=== PATIENT | female | born 1935 | race Caucasian/White ===

== ENCOUNTER 2016-07-22 21:49 | Inpatient (IN) ==
[2016-07-22] MEDS ORDERED: 0.9 % Sodium Chloride 500 ML IVC ONE (22:00)
[2016-07-22 22:18] LABS: Basophils % 0.2 %; Hematocrit 31.8 % (35.3-44.9); Hemoglobin 9.4 g/dL (11.5-15.4); Immature Granulocytes % 1.4 % (0-4); Lymphocytes # 0.4 K/mcL (0.6-4.6); Lymphocytes % 2.3 %; Mean Corpuscular HGB Conc 29.6 g/dL (31.6-35.5); Mean Corpuscular Hemoglobin 20.3 pg (28.0-33.3); Mean Corpuscular Volume 68.8 fL (83.0-100.0); Mean Platelet Volume 10.2 fL (9.4-12.4); Monocytes # 0.7 K/mcL (0.0-1.3); Monocytes % 4.2 %; Neutrophils # 15.3 K/mcL (1.6-8.9); Platelet Count 362 K/mcL (140-400); Red Blood Count 4.62 M/mcL (3.82-4.97); Segmented Neutrophils % 91.9 %
[2016-07-22] MEDS ORDERED: Aspirin 81 MG TAB.CHEW PO ONE (22:21)
--- NOTE | 2016-07-22 22:30 | Emergency Department Note ---
Disposition Clinical Impression: Paroxysmal atrial fibrillation with RVR, NSTEMI (non-ST elevated myocardial infarction) Disposition: Admitted As Inpatient Condition: Fair Referrals: NO,PCP [Primary Care Provider] - Forms: ED Satisfaction Letter Time of Disposition: 01:37 SOB HPI - General Chief Complaint: ED Shortness of Breath/Dyspnea Stated Complaint: SOB/Fever Time Seen by Provider: 07/22/16 22:07 Source: EMS Limitations: no limitations Nursing Notes Reviewed: Yes Vital Signs Reviewed: Yes - History of Present Illness 81 year old female with poor PCP followup and grandchildren and bedside. She state that she is having difficulty with breathing. Patients grandchildren states that she was complainign of midsternal chest pain a few days ago without radiation or diaphoresis. She has had a productive cough for the past two weeks with a tmax of 102F. Marty has been exposed to someone with bronchitis and had not been immunizaed against the flu this year. She was a long standing smoker without HX of cancer but it otherwise immobile and moves from her bed to the cough. Marty does not use inhales, breathing treatments, or oxygen at home and has not been diangosed with COPD or asthma. Upon arrival she was 89% and placed on oxygen and is now 97%. Patient denies abdominal pain, uti symptoms , nause or vomitting. Currenlty her chest pain is resolved although she still feels dyspniec. Cough is described as green/yellow sputum. - Related Data Allergies Allergy/AdvReac Type Severity Reaction Status Date / Time No Known Allergies Allergy Verified 07/22/16 21:50 Constitutional: Denies: fever, chills, weakness, weight change Eyes: Denies: eye pain, eye discharge, vision change ENT ED: Denies: ear pain, throat pain, dental pain, hearing loss, epistaxis, congestion, dysphagia Cardiovascular: Reports: chest pain, dyspnea on exertion. Denies: palpitations , edema, syncope Respiratory: Reports: cough, dyspnea. Denies: wheezes, hemoptysis, stridor Gastrointestinal: Denies: abdominal pain, nausea, vomiting, diarrhea, constipation, hematemesis, melena, hematochezia Genitourinary: Denies: dysuria, frequency, hematuria, discharge Musculoskeletal: Denies: back pain, neck pain, arthralgia, myalgia Integumentary: Denies: rash, abrasion, lesions Neurological: Denies: headache, weakness, numbness, paresthesias, confusion, abnormal gait, vertigo Psychiatric: Denies: anxiety, depression, suicidal thoughts, homicidal thoughts , auditory hallucinations, visual hallucinations Endocrine: Denies: fatigue Hematological/Lymphatic: Denies: easy bleeding, easy bruising Allergic/Immunologic: Denies: facial swelling, urticaria Past Medical History - Past Medical History Medical history: Reports: no medical history Psychiatric history: Reports: no psych history - Social History Smoking Status: Former smoker Smokeless Tobacco Status: No Alcohol use: Reports: none Drug use: Reports: none Physical Exam - General Limitations: no limitations General appearance: alert - Head Head exam: atraumatic, normocephalic, normal inspection - Eye Eye exam: Present: normal appearance, PERRL, EOMI - Expanded Eye Exam Pupils: Left: reactive - ENT ENT exam: normal exam, normal oropharynx, mucous membranes moist - Expanded ENT Exam External ear exam: Present: normal external inspection Mouth exam: Present: normal external inspection Teeth exam: Present: normal inspection Throat exam: Present: normal inspection - Neck Neck exam: Present: normal inspection, full ROM, trachea midline - Chest Chest inspection: Present: normal inspection, symmetric chest wall rise - Respiratory Respiratory exam: Present: normal lung sounds bilaterally - Cardiovascular Cardiovascular exam: Present: normal rhythm, tachycardia, normal heart sounds - Abdominal Exam Abdominal exam: Present: soft, Non-Tender. Absent: tenderness, distention, guarding, rebound, rigidity - Extremities Exam Extremities exam: Present: normal inspection, full ROM. Absent: tenderness, pedal edema - Expanded Upper Extremity Exam Shoulder exam: Present: normal inspection, full ROM Arm exam: Present: normal inspection, full ROM Elbow exam: Present: normal inspection, full ROM Forearm/Wrist exam: Present: normal inspection, full ROM Hand exam: Present: normal inspection, full ROM Vascular exam: Normal: capillary refill, radial pulse - Expanded Lower Extremity Exam Hip/Pelvis exam: Present: normal inspection, full ROM Upper leg exam: Present: normal inspection, full ROM Knee exam: Present: normal inspection, full ROM Lower leg exam: Present: normal inspection, full ROM Ankle exam: Present: normal inspection, full ROM Foot/toe exam: Present: normal inspection, full ROM Neurovascular/Tendon exam: Absent: motor deficit, sensory deficit, tendon deficit - Back Exam Back exam: Present: normal inspection, full ROM. Absent: tenderness - Neurological Exam Neurological exam: Present: alert, oriented X3 - Expanded Neurological Exam Patient oriented to: Present: person, place, time Speech: Present: fluid speech Coma Scale Eye Opening: Spontaneous Coma Scale Motor Response: Obeys Commands Coma Scale Verbal Response: Oriented Coma Scale Total: 15 - Psychiatric Psychiatric exam: Present: normal affect, normal mood - Skin Skin exam: Present: warm, dry, intact, normal color Course Course Narrative: we will do a chest pain workup in aiddition to rule out pnuemonia/influenza. Cannot perc out patient and wells critieria score of 3. We will add a D-dimer for PE rule out. ASA and IVF given for therpy. - Reevaluation(s) Reevaluation #1: treat marty with ASA and CTA chest to r/o PE and assess for pnuemonia. Time: 23:32 Reevaluation #2: patient heart rate elevated to 200s at rest with stable blood pressures. heparin therapy started. Will need to do V/Q vs CTA in house, in the meantime we will start anticoagulation therapy. Time: 01:35 Reevaluation #3: marty convereted out of her atrial fibrillation on her own. We will hold the cardizem. HR is 113. Time: 01:35 - Consultations Consultation #1: discussed case with Dr. Priest and he accepts patient to medicine Time: 01:46 Vital Signs Temperature 99.2 F 07/22/16 21:51 Pulse Rate 117 07/22/16 21:51 Respiratory Rate 31 07/22/16 21:51 Blood Pressure 161/97 07/22/16 21:51 O2 Sat by Pulse Oximetry 96 07/22/16 21:51 Temperature 99.2 F 07/22/16 21:51 Pulse Rate 107 07/23/16 00:43 Respiratory Rate 18 07/23/16 00:43 Blood Pressure 122/59 07/23/16 00:43 O2 Sat by Pulse Oximetry 95 07/23/16 00:43 Oxygen Delivery Oxygen Delivery Nasal Cannula Shortness of Breath/Dyspnea - Lab Data Result diagrams: 07/22/16 22:00 07/22/16 22:00 Lab Results 07/22/16 07/22/16 07/22/16 Range/Units 22:00 22:00 22:00 WBC 16.6 H (4.3-11.1) K/mcL RBC 4.62 (3.82-4.97) M/mcL Hgb 9.4 L (11.5-15.4) g/dL Hct 31.8 L (35.3-44.9) % MCV 68.8 L (83.0-100.0) fL MCH 20.3 L (28.0-33.3) pg MCHC 29.6 L (31.6-35.5) g/dL RDW 18.0 H (11.5-14.5) % Plt Count 362 (140-400) K/mcL MPV 10.2 (9.4-12.4) fL Immature Gran % 1.4 (0-4) % Seg Neutrophils % 91.9 % Lymphocytes % 2.3 % Monocytes % 4.2 % Eosinophils % 0.0 % Basophils % 0.2 % Neutrophils # 15.3 H (1.6-8.9) K/mcL Lymphocytes # 0.4 L (0.6-4.6) K/mcL Monocytes # 0.7 (0.0-1.3) K/mcL Eosinophils # 0.0 (0.0-0.6) K/mcL Basophils # 0.0 (0.0-0.2) K/mcL Toxic Granulation Present A (Not Present) Microcytosis Present A (Not Present) PT (9.4-12.1) Seconds INR APTT (26.0-36.0) Seconds D-Dimer (0-500) ng/mLFEU Sodium 135 L (136-145) mEq/L Potassium 3.3 L (3.5-4.5) mEq/L Chloride 102 (98-109) mEq/L Carbon Dioxide 23 (19-29) mEq/L BUN 16 (7-20) mg/dL Creatinine 0.69 (0.57-1.11) mg/dL Est GFR ( Amer) > 60 (> 60) Est GFR (Non-Af Amer) > 60 (> 60) BUN/Creatinine Ratio 23 (6-26) Glucose 155 H (70-99) mg/dL Calculated Osmolality 284 (280-300) Lactic Acid 1.6 (0.5-2.2) mmol/L Calcium 8.9 (8.6-10.8) mg/dL Total Bilirubin 0.3 (0.2-1.2) mg/dL Direct Bilirubin 0.2 (0.0-0.5) mg/dL Indirect Bilirubin 0.1 (0.0-1.2) mg/dL AST 16 (5-34) Units/L ALT 7 (0-55) Units/L Alkaline Phosphatase 95 (38-126) Units/L Troponin I (0-0.03) ng/mL B-Natriuretic Peptide (0-100) pg/mL Serum Total Protein 7.0 (6.0-8.3) g/dL Albumin 3.1 L (3.5-5.0) g/dL Globulin 3.9 H (2.4-3.5) g/dL Albumin/Globulin Ratio 0.8 L (1.1-2.2) Urine Color (Yellow) Urine Clarity (Clear) Urine pH (5.0-8.0) pH Units Ur Specific [place] (1.010-1.025) Urine Protein (Neg-Trace) mg/dL Urine Glucose (UA) (Normal) mg/dL Urine Ketones (Negative) mg/dL Urine Blood (Negative) Urine Nitrite (Negative) Urine Bilirubin (Negative) Urine Urobilinogen (Normal) mg/dL Ur Leukocyte Esterase (Negative) Ur Culture Indicated? (NO) 07/22/16 07/22/16 07/22/16 Range/Units 22:00 22:00 22:55 WBC (4.3-11.1) K/mcL RBC (3.82-4.97) M/mcL Hgb (11.5-15.4) g/dL Hct (35.3-44.9) % MCV (83.0-100.0) fL MCH (28.0-33.3) pg MCHC (31.6-35.5) g/dL RDW (11.5-14.5) % Plt Count (140-400) K/mcL MPV (9.4-12.4) fL Immature Gran % (0-4) % Seg Neutrophils % % Lymphocytes % % Monocytes % % Eosinophils % % Basophils % % Neutrophils # (1.6-8.9) K/mcL Lymphocytes # (0.6-4.6) K/mcL Monocytes # (0.0-1.3) K/mcL Eosinophils # (0.0-0.6) K/mcL Basophils # (0.0-0.2) K/mcL Toxic Granulation (Not Present) Microcytosis (Not Present) PT (9.4-12.1) Seconds INR APTT (26.0-36.0) Seconds D-Dimer (0-500) ng/mLFEU Sodium (136-145) mEq/L Potassium (3.5-4.5) mEq/L Chloride (98-109) mEq/L Carbon Dioxide (19-29) mEq/L BUN (7-20) mg/dL Creatinine (0.57-1.11) mg/dL Est GFR ( Amer) (> 60) Est GFR (Non-Af Amer) (> 60) BUN/Creatinine Ratio (6-26) Glucose (70-99) mg/dL Calculated Osmolality (280-300) Lactic Acid (0.5-2.2) mmol/L Calcium (8.6-10.8) mg/dL Total Bilirubin (0.2-1.2) mg/dL Direct Bilirubin (0.0-0.5) mg/dL Indirect Bilirubin (0.0-1.2) mg/dL AST (5-34) Units/L ALT (0-55) Units/L Alkaline Phosphatase (38-126) Units/L Troponin I 0.05 H* (0-0.03) ng/mL B-Natriuretic Peptide 127 H (0-100) pg/mL Serum Total Protein (6.0-8.3) g/dL Albumin (3.5-5.0) g/dL Globulin (2.4-3.5) g/dL Albumin/Globulin Ratio (1.1-2.2) Urine Color Dark Yellow (Yellow) Urine Clarity Clear (Clear) Urine pH 6.0 (5.0-8.0) pH Units Ur Specific [place] 1.025 (1.010-1.025) Urine Protein Trace (Neg-Trace) mg/dL Urine Glucose (UA) Normal (Normal) mg/dL Urine Ketones 15 H (Negative) mg/dL Urine Blood Negative (Negative) Urine Nitrite Negative (Negative) Urine Bilirubin Moderate H (Negative) Urine Urobilinogen 4.0 H (Normal) mg/dL Ur Leukocyte Esterase Negative (Negative) Ur Culture Indicated? NO (NO) 07/22/16 Range/Units 23:47 WBC (4.3-11.1) K/mcL RBC (3.82-4.97) M/mcL Hgb (11.5-15.4) g/dL Hct (35.3-44.9) % MCV (83.0-100.0) fL MCH (28.0-33.3) pg MCHC (31.6-35.5) g/dL RDW (11.5-14.5) % Plt Count (140-400) K/mcL MPV (9.4-12.4) fL Immature Gran % (0-4) % Seg Neutrophils % % Lymphocytes % % Monocytes % % Eosinophils % % Basophils % % Neutrophils # (1.6-8.9) K/mcL Lymphocytes # (0.6-4.6) K/mcL Monocytes # (0.0-1.3) K/mcL Eosinophils # (0.0-0.6) K/mcL Basophils # (0.0-0.2) K/mcL Toxic Granulation (Not Present) Microcytosis (Not Present) PT 14.3 H (9.4-12.1) Seconds INR 1.3 APTT 28.4 (26.0-36.0) Seconds D-Dimer 1557 H (0-500) ng/mLFEU Sodium (136-145) mEq/L Potassium (3.5-4.5) mEq/L Chloride (98-109) mEq/L Carbon Dioxide (19-29) mEq/L BUN (7-20) mg/dL Creatinine (0.57-1.11) mg/dL Est GFR ( Amer) (> 60) Est GFR (Non-Af Amer) (> 60) BUN/Creatinine Ratio (6-26) Glucose (70-99) mg/dL Calculated Osmolality (280-300) Lactic Acid (0.5-2.2) mmol/L Calcium (8.6-10.8) mg/dL Total Bilirubin (0.2-1.2) mg/dL Direct Bilirubin (0.0-0.5) mg/dL Indirect Bilirubin (0.0-1.2) mg/dL AST (5-34) Units/L ALT (0-55) Units/L Alkaline Phosphatase (38-126) Units/L Troponin I (0-0.03) ng/mL B-Natriuretic Peptide (0-100) pg/mL Serum Total Protein (6.0-8.3) g/dL Albumin (3.5-5.0) g/dL Globulin (2.4-3.5) g/dL Albumin/Globulin Ratio (1.1-2.2) Urine Color (Yellow) Urine Clarity (Clear) Urine pH (5.0-8.0) pH Units Ur Specific [place] (1.010-1.025) Urine Protein (Neg-Trace) mg/dL Urine Glucose (UA) (Normal) mg/dL Urine Ketones (Negative) mg/dL Urine Blood (Negative) Urine Nitrite (Negative) Urine Bilirubin (Negative) Urine Urobilinogen (Normal) mg/dL Ur Leukocyte Esterase (Negative) Ur Culture Indicated? (NO) - EKG Data EKG attestation: Yes I reviewed and interpreted this EKG. EKG results narrative: sinus tachycardia with rate of 131. NO STEMI. PVCs present. LAFB. no change from old ekg 05/16/11. 8 EKG #2: sinus tachycardia with rate of 119. NO STEMI. normla intevals. PVCs. 2329 EKG #3: paroxysmal atrial fibrillation with RVR. 0128 Attestation Statement - Attestation Attestation: I personally interviewed and examined this patient and my medical decision- making was reviewed with the ED Resident Physician, Dr. Candelaria. I agree with the documented findings, disposition and treatment plan as described except to the extent set forth below. Patient is a 81-year-old female presented to the emergency department with complaints of shortness of breath lightheadedness and was hypoxic on arrival on room air 89%. She was extremely tachycardic but with a stable blood pressure and serial EKGs during the majority of her ED course showed a sinus tachycardia with occasional PACs and PVCs. Patient's lab evaluation showed a positive troponin with normal renal function. We did cover the patient with aspirin and heparin. We also discussed the case with cardiology will consult on the patient, Dr. Rodney. We made attempts to perform CT to rule out PE due to patient's baseline tachycardia and dyspnea and hypoxia and due to patient's thoracic spine injuries and chronic pain she is unable to tolerate lying flat or left lateral decubitus position to tolerate a scan and is refusing CT. Due to this we went ahead and extubated her heparin dosing to include coverage for PE DVT based on dosing. Patient then while resting comfortably bedside had a paroxysmal episode of atrial fibrillation with RVR. We did catch this on EKG and while we are in the process of preparing to dose her with Gabrielle patient converted back to normal sinus rhythm spontaneously. Patient has been in a sinus rhythm since that time and we are continuing her to monitor her closely. Patient will be admitted for further evaluation for non-STEMI, tachycardia, and paroxysmal A. fib.
[2016-07-22 22:40] LABS: Microcytosis Present (Not Present); Toxic Granulation Present (Not Present)
[2016-07-22 22:41] LABS: Alanine Aminotransferase 7 Units/L (0-55); Albumin 3.1 g/dL (3.5-5.0); Albumin/Globulin Ratio 0.8 (1.1-2.2); Alkaline Phosphatase 95 Units/L (38-126); Aspartate Amino Transferase 16 Units/L (5-34); BUN/Creatinine Ratio 23 (6-26); Bilirubin,Direct 0.2 mg/dL (0.0-0.5); Bilirubin,Indirect 0.1 mg/dL (0.0-1.2); Bilirubin,Total 0.3 mg/dL (0.2-1.2); Blood Urea Nitrogen 16 mg/dL (7-20); Calcium 8.9 mg/dL (8.6-10.8); Carbon Dioxide 23 mEq/L (19-29); Chloride 102 mEq/L (98-109); Globulin 3.9 g/dL (2.4-3.5); Glucose 155 mg/dL (70-99); Osmolality,Calculated 284 (280-300); Potassium 3.3 mEq/L (3.5-4.5); Sodium 135 mEq/L (136-145); eGFR For African Americans > 60 (> 60); eGFR For Non-African Americans > 60 (> 60)
[2016-07-22 23:06] LABS: Bilirubin,Urine Moderate (Negative); Blood,Urine Negative (Negative); Clarity,Urine Clear (Clear); Color,Urine Dark Yellow (Yellow); Glucose,Urine (UA) Normal (Normal); Ketones,Urine 15 mg/dL (Negative); Leukocyte Esterase,Urine Negative (Negative); Nitrite,Urine Negative (Negative); Protein,Urine Trace mg/dL (Neg-Trace); Specific Gravity,Urine 1.025 (1.010-1.025)
[2016-07-23] MEDS ORDERED: *HR* Heparin 5,000 UNIT/ML VIAL IVP PRN ×2 (01:22)
[2016-07-23] MEDS ORDERED: *HR* Heparin 5,000 UNIT/ML VIAL IVP ONE (01:22)
[2016-07-23] MEDS ORDERED: Heparin 25,000 UNIT/500 ML D5W 25,000 UNIT/500 ML MLS IVC SCH (01:30)
[2016-07-23 01:46] LABS: INR 1.3; Prothrombin Time 14.3 Seconds (9.4-12.1)
[2016-07-23 01:48] LABS: Activated Partial Thrombo Time 28.4 Seconds (26.0-36.0)
[2016-07-23] MEDS ORDERED: Acetaminophen 325 MG TABLET PO PRN (04:05)
--- NOTE | 2016-07-23 04:17 | Internal Med History&Physical ---
<Chika Jane - Last Filed: 07/23/16 04:21> Date of Encounter: 07/23/16 Time of Encounter: 03:00 Assessment and Plan (1) Acute and chronic respiratory failure with hypoxia Current visit: Yes Status: Acute - With reported oxygen saturation drop to 89% on room air in ED. And patient is not on oxygen at home. - Likely secondary to current bronchitis and/or possible PE in the setting of anemia. - Current O2 sat at 95% on 2L oxygen. - Will treat bronchitis with IV doxycycline. - Continue heparin drip for PE. - Continue supplemental oxygen. - Closely monitor with continuous pulse oximetry. (2) Bronchitis Current visit: Yes Status: Acute - Worsening shortness of breath and productive cough with initially yellow but now green sputum. Also has leukocytosis (WBC 16.6). - CXR does not appear to strongly suggest pneumonia. - Blood culture pending. - Will obtain sputum culture with gram stain. - Will check respiratory infection panel. - Start IV Doxycycline but may switch to PO after few days. - Continue to monitor. (3) Pulmonary embolism Current visit: Yes Status: Suspected - Suspected PE given elevated d-dimer, RLE swelling and hypoxic respiratory failure. - Patient cannot get CTA chest done because she cannot lay flat. - Will order VQ scan to see if that can be done in lounge chair position. - Will also obtain bilateral LE venous US for look for DVT. - Continue heparin drip for anticoagulation. Qualifiers: Pulmonary embolism type: other Chronicity: unspecified Acute cor pulmonale presence: without acute cor pulmonale Qualified Code(s): I26.99 - Other pulmonary embolism without acute cor pulmonale (4) Paroxysmal atrial fibrillation with RVR Current visit: Yes Status: Acute - New onset of A-fib/A-flutter with RVR in ED. - Was on Cardizem drip but discontinued after it converted back to sinus rhythm. - Current HR at 90s. - Continue rate control with metoprolol. - Continue heparin drip for anticoagulation. - Will check TSH. - Will consult cardiology and appreciate evaluation and recommendations. - Continue to monitor with telemetry. (5) Elevated troponin Current visit: Yes Status: Acute - Elevated troponin at 0.05 on initial presentation. - Likely secondary to A-fib/A-flutter. Right heart strain from PE is another possible cause. - Doubt AK given no current chest pain and no significant ischemic change on EKG. - Will continue to trend troponin q6H. - Will obtain echocardiogram to evaluate heart function. - Will check lipid panel and Hgb A1C for risk stratification. - Start aspirin, atorvastatin, metoprolol and lisinopril. - NPO now for potential need of cardiac cath but may consider to start cardiac diet if troponin stable or trends down. (6) Microcytic anemia Current visit: Yes Status: Acute - Hgb 9.4 on initial presentation. - Will check iron panel and ferritin. - Patient will need outpatient colonoscopy for colon cancer screening. Internal Medicine - H&P: HPI Chief complaint: worsening shortness of breath and productive cough Admitted From: Emergency Dept Plans for Post Hospital Care: Home History of present illness: Ms. García is a 81 year old female without known PMH (because patient had not seen doctor for years). Patient presented with complaint of worsening shortness of breath and productive cough for 2 weeks. The sputum was initially yellow but now is green. It's associated with wheezes, chills and fever which patient's granddaughter at bedside reports it was 103 at home. Patient also reports having one episode of palpitation with associated lightheadedness and pressure- like upper chest pain radiating to right arm last night. Patient also has some nausea with one episode of nonbilious vomiting. Patient also has right lower extremity for unknown duration of time. Patient denies syncope, diaphoresis, significant weight change, calf pain, abdominal pain, diarrhea, hematochezia, melena, dysuria, hematuria. Marty has been exposed to someone with bronchitis and had gotten flu vaccination this year. Patient is mostly bed bound but cannot lay flat because of her kyphosis, chronic back pain and history of lower spine fracture. Patient also has urinary incontinence requiring diaper. Patient quitted cigarettes 24 years ago but did smoke 1/2 pack for about 25 years. Patient denies being diagnosed with any heart or lung problem in the past. Patient does not take any medications nor use any oxygen or inhaler at home. Patient never has colonoscopy done before. Patient reports she is full code at this time but patient's grandchildren at bedside states they will discuss with family members and get advance directive done. Upon initial arrival to ED, patient was noted to have oxygen saturation 89% on RA, which later improved to 95% on 2L oxygen. Patient was found to have leukocytosis (WBC 16.6), elevated troponin (0.05) and elevated d-dimer (1557) in ED. CTA chest was ordered but not performed since patient cannot lay flat. Patient was also noted to develop A-fib RVR in ED and started on Cardizem drip. Patient then converted out of A-fib at HR 113 so Cardizem drip was hold. Patient is currently on full strength heparin drip for possible PE. Patient will be admitted for further evaluation and management. Past Med Surg Social Fam HX - Past Medical History Medical history: no medical history Psychiatric history: no psych history - Past Surgical History Surgical History: appendectomy, hip replacement (Right), hysterectomy - Social History Smoking Status: Former smoker Packs per day: Quitted 24 years ago. Used to smoke 1/2 pack for 25 years. Smokeless Tobacco Status: No Alcohol use: none Drug use: none - Family History Brother Living Status: Hx Family Cardiac Disorders: Yes (AK) Hx Family Cancer: Yes (melanoma) Hx Family Neurologic Disorders: Yes (Alzheimer disease) Sister Living Status: Hx Family Genitourinary Disorders: Yes (kidney failure) Internal Medicine - H&P: Meds Aspirin [Lo-Dose Aspirin EC] 81 mg PO DAILY 07/23/16 [History] Allergies No Known Allergies Allergy (Verified 07/22/16 21:50) All Systems PM: A 10-system review of systems was performed and is negative for pertinent findings except as documented above in the HPI. - Constitutional Constitutional: anorexia, chills, fever(s), no weight gain - EENT Eyes: no change in vision Ears: no decreased hearing Nose, mouth and throat: odynophagia - Cardiovascular Cardiovascular ROS IM: chest pain, edema (RLE), lightheadedness, palpitations, no diaphoresis, no syncope - Respiratory Respiratory: cough, dyspnea, wheezing, excessive phlegm production, change in phlegm color (Initially yellow now green), no hemoptysis - Gastrointestinal Gastrointestinal: nausea, vomiting, no abdominal pain, no diarrhea, no hematochezia, no melena - Genitourinary Genitourinary: urinary incontinence, no dysuria, no hematuria - Musculoskeletal Musculoskeletal ROS IM: back pain (Chronic lower back pain) - Integumentary Integumentary IM: no pruritus, no rash - Neurological Neurological ROS: no focal weakness, no numbness, no tingling - Hematologic/Lymphatic Hematologic/Lymphatic: easy bruising, no easy bleeding - Constitutional Vitals: Temp Pulse Resp BP Pulse Ox 98.2 F 110 18 126/64 99 07/23/16 03:54 07/23/16 02:39 07/23/16 03:54 07/23/16 03:54 07/23/16 02:39 General appearance: Present: cooperative, A&O X 3, no acute distress, answers questions appropriately - Head Head exam: Present: atraumatic, normocephalic - Eye Eye exam: Present: EOMI, PERRL, conjuntiva pink, sclera anicteric - Neck Neck exam general surgery: Present: supple, trachea midline. Absent: lymphadenopathy - Respiratory Respiratory exam: Present: rales (Bibasilar). Absent: accessory muscle use, rhonchi, wheezes - Cardiovascular Cardiovascular exam: Present: +S1, +S2, tachycardia. Absent: diastolic murmur, gallop, rubs, systolic murmur - GI/Abdominal GI/Abdominal exam: Present: normal bowel sounds, soft, no peritoneal signs. Absent: distended, tenderness - Extremities Exam Extremities exam: Present: warm, radial pulses palpable and symetrical. Absent : calf tenderness, cyanotic Additional comments: Right lower leg swelling. - Back Exam Additional comments: Significant kyphosis - Neurological Exam Neurological exam: Present: CN II-XII intact, oriented X3, no focal deficits. Absent: pronater drift, facial droop, speech deficit - Skin Skin exam: Present: dry, intact, warm Internal Med - H&P Results - Labs CBC & Chem 7: 07/22/16 22:00 07/22/16 22:00 Labs: Short CBC 07/22/16 Range/Units 22:00 WBC 16.6 H (4.3-11.1) K/mcL Hgb 9.4 L (11.5-15.4) g/dL Hct 31.8 L (35.3-44.9) % Plt Count 362 (140-400) K/mcL Neutrophils # 15.3 H (1.6-8.9) K/mcL BMP 07/22/16 Range/Units 22:00 Sodium 135 L (136-145) mEq/L Potassium 3.3 L (3.5-4.5) mEq/L Chloride 102 (98-109) mEq/L Carbon Dioxide 23 (19-29) mEq/L BUN 16 (7-20) mg/dL Creatinine 0.69 (0.57-1.11) mg/dL Glucose 155 H (70-99) mg/dL Calcium 8.9 (8.6-10.8) mg/dL Cardiac Enzymes 07/22/16 Range/Units 22:00 Troponin I 0.05 H* (0-0.03) ng/mL Liver Function 07/22/16 Range/Units 22:00 Total Bilirubin 0.3 (0.2-1.2) mg/dL Direct Bilirubin 0.2 (0.0-0.5) mg/dL AST 16 (5-34) Units/L ALT 7 (0-55) Units/L Alkaline Phosphatase 95 (38-126) Units/L Albumin 3.1 L (3.5-5.0) g/dL Urine 07/22/16 Range/Units 22:55 Urine Color Dark Yellow (Yellow) Urine Clarity Clear (Clear) Urine pH 6.0 (5.0-8.0) pH Units Ur Specific [place] 1.025 (1.010-1.025) Urine Protein Trace (Neg-Trace) mg/dL Urine Glucose (UA) Normal (Normal) mg/dL - EKG Data -: EKG Interpreted by Myself - EKG Data Prior EKG available for review: yes When compared to previous EKG: there are significant changes EKG comments: 07/23/16 04:54 HR 155, QRS 71, A-flutter. No significant ischemic change noted. - Impressions Impressions Chest X-Ray 07/22/16 21:58 IMPRESSION: Hazy bibasilar airspace disease. Bandlike morphology favors atelectasis rather than pneumonia D/ / Mike Crooks MD / Mike Crooks MD Interpreting Provider: Mike Crooks MD <Adam Rahman - Last Filed: 07/23/16 06:30> Date of Encounter: 07/23/16 Internal Medicine - H&P: HPI History of present illness: Ms. García is a 81 year old female [facility] with a chief complaint of increasing difficulty in breathing, generalized weakness and retrosternal chest pain. Symptoms began several days earlier. Upper respiratory symptoms workup and eat by productive cough of approximately 2 weeks' duration. Subjective and measured temperatures as high as 102 degrees Fahrenheit documented. No contacts with others with upper respiratory and lower respiratory infections acknowledged. Upon arrival she was found to be hypoxic at 89% on room air. This responded to supplemental oxygen up to 97% on 2 L per nasal cannula. Sputum reported to be productive of green/yellow sputum. Vital signs documented pulse of 117, respirations 31 temperature 99.2. Documented atrial fibrillation with RVR. WBC 16.6 . Differential noted increased neutrophils with toxic granulation. Comprehensive metabolic panel normal except sodium 135. Potassium 3.3. Glucose 155 osmolality 284. Lactic acid 1.6. Albumin 3.1 with total of 7. BUN 16 creatinine 0.69. Troponin 0.05 with BNP 127. Urinalysis noted trace protein and large ketones moderate bilirubin. Urobilinogen 4.0. PT 14.3 INR 1.3 PTT 28.4. D-dimer 1557. EKG sinus tachycardia. Grade 131. PVCs. PACs. Left anterior fascicular block. Transitioning paroxysmal atrial fibrillation RVR. Preliminary impressions suggests sepsis/SIRS criteria present upon admission. Source relates to upper and lower respiratory tract infection. Modest metabolic and electrolyte derangements evident. Chest pain has typical and atypical features. Respiratory variation suggests up pulmonary origin. Other etiologies for acute upper respiratory complaints including acute pulmonary emboli will be investigated. Ischemia of myocardium with open troponin and brain natruretic peptide is apparent consistent with type non-ST elevation AK. The patient is at further risk for clinical decline due to advanced age findings and comorbidities. Workup and treatments will proceed comprehensively.. The patient was visited and interviewed and examined. I examined this patient and my medical decision-making was reviewed with the Resident Physician, Dr. Chika Jane. For this encounter, I have reviewed the documentation, treatment plan, and medical decision making. I have had face to face time with this patient. Cumulative laboratory and radiographic data base wasreviewed, considered and discussed. I agree with the documented findings, disposition and treatment plan as described except to the extent set forth below. Given the patient's presenting concerns, past medical history, clinical findings and symptoms, she is admitted at this time to undergo further evaluation and disposition. Past Med Surg Social Fam HX - Past Medical History Source: old records reviewed Medical history: non-contributory - Social History Occupational status: unemployed, retired Current living situation: Home - Independent, Home Activity Level: Independent ambulation, Mostly sedentary Recent Out of Country Travel Within the Last 8 Weeks: No Exposure or Possible Exposure to Illness During Travel: No All Systems PM: A 10-system review of systems was performed and is negative for pertinent findings except as documented above in the HPI. - Constitutional Vitals: Temp Pulse Resp BP Pulse Ox 98.2 F 107 18 126/64 99 07/23/16 03:54 07/23/16 05:09 07/23/16 03:54 07/23/16 03:54 07/23/16 05:09 Vital Signs Temp Pulse Resp BP Pulse Ox 07/23/16 05:09 107 99 07/23/16 03:54 98.2 F 18 126/64 07/23/16 02:39 110 20 120/70 99 07/23/16 00:43 107 18 122/59 95 07/22/16 23:46 112 28 144/73 99 07/22/16 21:51 99.2 F 117 31 161/97 96 Intake and Output 07/22/16 07/22/16 07/23/16 15:59 23:59 07:59 Intake Total 500 / 500 Balance 500 / 500 Intake: IV Fluids 500 / 500 0.9 % Sodium Chloride 500 500 / 500 ML @ 1875 mls/hr IVC . Q16M ONE Rx#:[id number] Other: Weight 58.967 kg Internal Med - H&P Results - Labs CBC & Chem 7: 07/23/16 04:47 07/23/16 04:47 Labs: Short CBC 07/23/16 Range/Units 04:47 WBC 19.7 H (4.3-11.1) K/mcL Hgb 9.1 L (11.5-15.4) g/dL Hct 30.5 L (35.3-44.9) % Plt Count 333 (140-400) K/mcL Neutrophils # 17.9 H (1.6-8.9) K/mcL BMP 07/23/16 04:47 Sodium 133 L Potassium 3.2 L Chloride 101 Carbon Dioxide 24 BUN 13 Creatinine 0.62 Glucose 125 H Calcium 8.9 Cardiac Enzymes 07/23/16 Range/Units 04:47 Troponin I 0.05 H* (0-0.03) ng/mL Abnormal lab results WBC 19.7 K/mcL (4.3-11.1) H 07/23/16 04:47 Hgb 9.1 g/dL (11.5-15.4) L 07/23/16 04:47 Hct 30.5 % (35.3-44.9) L 07/23/16 04:47 MCV 68.7 fL (83.0-100.0) L 07/23/16 04:47 MCH 20.5 pg (28.0-33.3) L 07/23/16 04:47 MCHC 29.8 g/dL (31.6-35.5) L 07/23/16 04:47 RDW 18.1 % (11.5-14.5) H 07/23/16 04:47 Neutrophils # 17.9 K/mcL (1.6-8.9) H 07/23/16 04:47 Toxic Granulation Present (Not Present) A 07/22/16 22:00 Large Platelets Present (Not Present) A 07/23/16 04:47 Microcytosis Present (Not Present) A 07/23/16 04:47 PT 14.3 Seconds (9.4-12.1) H 07/22/16 23:47 D-Dimer 1557 ng/mLFEU (0-500) H 07/22/16 23:47 Sodium 133 mEq/L (136-145) L 07/23/16 04:47 Potassium 3.2 mEq/L (3.5-4.5) L 07/23/16 04:47 Glucose 125 mg/dL (70-99) H 07/23/16 04:47 Calculated Osmolality 278 (280-300) L 07/23/16 04:47 Phosphorus 1.9 mg/dL (2.3-4.7) L 07/23/16 04:47 Iron 12 mcg/dL (50-170) L 07/23/16 04:47 % Saturation 3 % (15-50) L 07/23/16 04:47 Troponin I 0.05 ng/mL (0-0.03) H* 07/23/16 04:47 B-Natriuretic Peptide 127 pg/mL (0-100) H 07/22/16 22:00 Albumin 3.1 g/dL (3.5-5.0) L 07/22/16 22:00 Globulin 3.9 g/dL (2.4-3.5) H 07/22/16 22:00 Albumin/Globulin Ratio 0.8 (1.1-2.2) L 07/22/16 22:00 Urine Ketones 15 mg/dL (Negative) H 07/22/16 22:55 Urine Bilirubin Moderate (Negative) H 07/22/16 22:55 Urine Urobilinogen 4.0 mg/dL (Normal) H 07/22/16 22:55 Laboratory Results WBC 19.7 K/mcL (4.3-11.1) H 07/23/16 04:47 RBC 4.44 M/mcL (3.82-4.97) 07/23/16 04:47 Hgb 9.1 g/dL (11.5-15.4) L 07/23/16 04:47 Hct 30.5 % (35.3-44.9) L 07/23/16 04:47 MCV 68.7 fL (83.0-100.0) L 07/23/16 04:47 MCH 20.5 pg (28.0-33.3) L 07/23/16 04:47 MCHC 29.8 g/dL (31.6-35.5) L 07/23/16 04:47 RDW 18.1 % (11.5-14.5) H 07/23/16 04:47 Plt Count 333 K/mcL (140-400) 07/23/16 04:47 MPV 10.2 fL (9.4-12.4) 07/23/16 04:47 Immature Gran % 0.7 % (0-4) 07/23/16 04:47 Seg Neutrophils % 90.8 % 07/23/16 04:47 Lymphocytes % 3.9 % 07/23/16 04:47 Monocytes % 4.4 % 07/23/16 04:47 Eosinophils % 0.0 % 07/23/16 04:47 Basophils % 0.2 % 07/23/16 04:47 Neutrophils # 17.9 K/mcL (1.6-8.9) H 07/23/16 04:47 Lymphocytes # 0.8 K/mcL (0.6-4.6) 07/23/16 04:47 Monocytes # 0.9 K/mcL (0.0-1.3) 07/23/16 04:47 Eosinophils # 0.0 K/mcL (0.0-0.6) 07/23/16 04:47 Basophils # 0.0 K/mcL (0.0-0.2) 07/23/16 04:47 Toxic Granulation Present (Not Present) A 07/22/16 22:00 Platelet Estimate Normal (Normal) 07/23/16 04:47 Large Platelets Present (Not Present) A 07/23/16 04:47 Microcytosis Present (Not Present) A 07/23/16 04:47 PT 14.3 Seconds (9.4-12.1) H 07/22/16 23:47 INR 1.3 07/22/16 23:47 APTT 28.4 Seconds (26.0-36.0) 07/22/16 23:47 D-Dimer 1557 ng/mLFEU (0-500) H 07/22/16 23:47 Sodium 133 mEq/L (136-145) L 07/23/16 04:47 Potassium 3.2 mEq/L (3.5-4.5) L 07/23/16 04:47 Chloride 101 mEq/L (98-109) 07/23/16 04:47 Carbon Dioxide 24 mEq/L (19-29) 07/23/16 04:47 BUN 13 mg/dL (7-20) 07/23/16 04:47 Creatinine 0.62 mg/dL (0.57-1.11) 07/23/16 04:47 Est GFR ( Amer) > 60 (> 60) 07/23/16 04:47 Est GFR (Non-Af Amer) > 60 (> 60) 07/23/16 04:47 BUN/Creatinine Ratio 21 (6-26) 07/23/16 04:47 Glucose 125 mg/dL (70-99) H 07/23/16 04:47 Est Mean Plasma Glucose 97 mg/dl 07/23/16 04:47 Hemoglobin A1c 5.0 % (-5.6) 07/23/16 04:47 Calculated Osmolality 278 (280-300) L 07/23/16 04:47 Lactic Acid 1.6 mmol/L (0.5-2.2) 07/22/16 22:00 Calcium 8.9 mg/dL (8.6-10.8) 07/23/16 04:47 Phosphorus 1.9 mg/dL (2.3-4.7) L 07/23/16 04:47 Magnesium 1.7 mg/dL (1.6-2.6) 07/23/16 04:47 Iron 12 mcg/dL (50-170) L 07/23/16 04:47 % Saturation 3 % (15-50) L 07/23/16 04:47 Transferrin 301 mg/dL (180-382) 07/23/16 04:47 Total Bilirubin 0.3 mg/dL (0.2-1.2) 07/22/16 22:00 Direct Bilirubin 0.2 mg/dL (0.0-0.5) 07/22/16 22:00 Indirect Bilirubin 0.1 mg/dL (0.0-1.2) 07/22/16 22:00 AST 16 Units/L (5-34) 07/22/16 22:00 ALT 7 Units/L (0-55) 07/22/16 22:00 Alkaline Phosphatase 95 Units/L (38-126) 07/22/16 22:00 Troponin I 0.05 ng/mL (0-0.03) H* 07/23/16 04:47 B-Natriuretic Peptide 127 pg/mL (0-100) H 07/22/16 22:00 Serum Total Protein 7.0 g/dL (6.0-8.3) 07/22/16 22:00 Albumin 3.1 g/dL (3.5-5.0) L 07/22/16 22:00 Globulin 3.9 g/dL (2.4-3.5) H 07/22/16 22:00 Albumin/Globulin Ratio 0.8 (1.1-2.2) L 07/22/16 22:00 Triglycerides 53 mg/dL (< 150) 07/23/16 04:47 Cholesterol 137 mg/dL (< 200) 07/23/16 04:47 LDL Cholesterol, Calc 76 mg/dL (0-99) 07/23/16 04:47 VLDL Cholesterol, Calc 11 mg/dL (< 31) 07/23/16 04:47 HDL Cholesterol 50 mg/dL (40-59) 07/23/16 04:47 Cholesterol/HDL Ratio 2.7 (0-4.9) 07/23/16 04:47 TSH 1.432 mcIU/mL (0.350-4.840) 07/23/16 04:47 Urine Color Dark Yellow (Yellow) 07/22/16 22:55 Urine Clarity Clear (Clear) 07/22/16 22:55 Urine pH 6.0 pH Units (5.0-8.0) 07/22/16 22:55 Ur Specific [place] 1.025 (1.010-1.025) 07/22/16 22:55 Urine Protein Trace mg/dL (Neg-Trace) 07/22/16 22:55 Urine Glucose (UA) Normal mg/dL (Normal) 07/22/16 22:55 Urine Ketones 15 mg/dL (Negative) H 07/22/16 22:55 Urine Blood Negative (Negative) 07/22/16 22:55 Urine Nitrite Negative (Negative) 07/22/16 22:55 Urine Bilirubin Moderate (Negative) H 07/22/16 22:55 Urine Urobilinogen 4.0 mg/dL (Normal) H 07/22/16 22:55 Ur Leukocyte Esterase Negative (Negative) 07/22/16 22:55 Ur Culture Indicated? NO (NO) 07/22/16 22:55 Impressions Chest X-Ray 07/22/16 21:58 IMPRESSION: Hazy bibasilar airspace disease. Bandlike morphology favors atelectasis rather than pneumonia D/ / Mike Crooks MD / Mike Crooks MD Interpreting Provider: Mike Crooks MD - Attending Attestation My signature below is to certify that this patient is under my care and that I, or the Resident Physician working with me, has had a [id number] encounter with this patient.
[2016-07-23 05:14] LABS: Basophils % 0.2 %; Hematocrit 30.5 % (35.3-44.9); Hemoglobin 9.1 g/dL (11.5-15.4); Immature Granulocytes % 0.7 % (0-4); Lymphocytes # 0.8 K/mcL (0.6-4.6); Lymphocytes % 3.9 %; Mean Corpuscular HGB Conc 29.8 g/dL (31.6-35.5); Mean Corpuscular Hemoglobin 20.5 pg (28.0-33.3); Mean Corpuscular Volume 68.7 fL (83.0-100.0); Mean Platelet Volume 10.2 fL (9.4-12.4); Monocytes # 0.9 K/mcL (0.0-1.3); Monocytes % 4.4 %; Neutrophils # 17.9 K/mcL (1.6-8.9); Platelet Count 333 K/mcL (140-400); Red Blood Count 4.44 M/mcL (3.82-4.97); Red Cell Distribution Width 18.1 % (11.5-14.5); Segmented Neutrophils % 90.8 %
[2016-07-23 05:38] LABS: BUN/Creatinine Ratio 21 (6-26); Blood Urea Nitrogen 13 mg/dL (7-20); Calcium 8.9 mg/dL (8.6-10.8); Carbon Dioxide 24 mEq/L (19-29); Chloride 101 mEq/L (98-109); Chol/HDL Ratio 2.7 (0-4.9); Cholesterol 137 mg/dL (< 200); Glucose 125 mg/dL (70-99); HDL Cholesterol 50 mg/dL (40-59); LDL Cholesterol,Calculated 76 mg/dL (0-99); Magnesium 1.7 mg/dL (1.6-2.6); Osmolality,Calculated 278 (280-300); Phosphorous 1.9 mg/dL (2.3-4.7); Potassium 3.2 mEq/L (3.5-4.5); Sodium 133 mEq/L (136-145); Triglycerides 53 mg/dL (< 150); eGFR For African Americans > 60 (> 60); eGFR For Non-African Americans > 60 (> 60)
[2016-07-23 05:43] LABS: Large Platelets Present (Not Present); Microcytosis Present (Not Present); Platelet Estimate Normal (Normal)
[2016-07-23 05:46] LABS: Thyroid Stimulating Hormone 1.432 mcIU/mL (0.350-4.840)
[2016-07-23] MEDS ORDERED: Doxycycline 100 MG in 0.9 % Sodium Chloride Mini Bag 100 ML IVPB SCH (06:00)
[2016-07-23 06:06] LABS: % Iron Saturation 3 % (15-50); Iron 12 mcg/dL (50-170); Transferrin 301 mg/dL (180-382)
[2016-07-23 06:25] LABS: Ferritin 22 ng/ml (5-204)
[2016-07-23] MEDS ORDERED: Ondansetron 4 MG/2 ML VIAL IVP PRN (06:32)
[2016-07-23] MEDS ORDERED: Naloxone 0.4 MG/ML INJ IVP PRN (06:32)
[2016-07-23] MEDS ORDERED: *HR* Morphine 2 MG/ML SYRINGE IVP PRN (06:32)
[2016-07-23] MEDS ORDERED: *HR* OxyCODONE Immed Rel 5 MG TABLET PO PRN (06:32)
[2016-07-23] MEDS ORDERED: Albuterol 2.5 MG/3 ML NEBULIZER IH PRN (06:32)
[2016-07-23] MEDS ORDERED: Benzonatate 100 MG CAPSULE PO PRN (06:35)
[2016-07-23] MEDS: Pantoprazole 40 MG VIAL IVP SCH (08:50)
[2016-07-23] MEDS: Aspirin 81 MG TAB.CHEW PO SCH (08:50)
[2016-07-23] MEDS: 0.9 % Sodium Chloride 1,000 ML IVC SCH (08:50)
[2016-07-23 09:22] LABS: Enterococcus by PCR Not Detected (Not Detect); blaKPC Carbapenem-Resist Gene Not Detected (Not Detect); mecA Methicillin-Resist Gene Not Detected (Not Detect); vanA/B Vancomycin-Resist Genes Not Detected (Not Detect)
[2016-07-23 09:23] LABS: Acinetobacter baumannii by PCR Not Detected (Not Detect); Candida albicans by PCR Not Detected (Not Detect); Candida glabrata by PCR Not Detected (Not Detect); Candida krusei by PCR Not Detected (Not Detect); Candida parapsilosis by PCR Not Detected (Not Detect); Candida tropicalis by PCR Not Detected (Not Detect); Escherichia coli by PCR Not Detected (Not Detect); Klebsiella oxytoca by PCR Not Detected (Not Detect); Klebsiella pneumoniae by PCR Not Detected (Not Detect); Pseudomonas aeruginosa by PCR Not Detected (Not Detect); Serratia marcescens by PCR Not Detected (Not Detect); Staphylococcus aureus by PCR Not Detected (Not Detect); Streptococcus agalactiae(B)PCR ***DETECTED*** (Not Detect); Streptococcus by PCR ***DETECTED*** (Not Detect); Streptococcus pneumoniae PCR Not Detected (Not Detect); Streptococcus pyogenes (A) PCR Not Detected (Not Detect)
[2016-07-23] MEDS: Ipratropium/Albuterol Neb 3 ML IH SCH ×3 (11:00→23:03)
--- NOTE | 2016-07-23 13:37 | Cardiology Consult Note ---
Date of Encounter: 07/23/16 Time of Encounter: 13:32 Assessment and Plan (1) Paroxysmal atrial fibrillation with RVR Current Visit: Yes Status: Acute New onset paroxysmal atrial fibrillation in the setting of bacteremia, hypoxia, cough, leukocytosis Not currently in a-fib Echo is pending Recommend making sure she is on aspirin After infectious etiology is resolved and if a-fib is still resolved, there will be no need for anticoagulation. (2) Bacteremia Current Visit: Yes Status: Acute PCR and blood culture positive Source is likely pulmonary (cough, with productive sputum, and hypoxia) Being treated by primary team (3) Acute and chronic respiratory failure with hypoxia Current Visit: Yes Status: Acute Likely due to infectious etiology Echo is pending to evaluate EF Discussion w patient/family: The assessment and plan as outlined above was discussed with the patient and/or family members who expressed understanding and agreement. All questions were answered. Thank you for involving us in the care of your patient. Please call with any questions. History of Present Illness Consult date: 07/23/16 Consult reason: Paroxysmal atrial fibrillation Chief complaint: dyspnea History of present illness: Ms. García is a 81 year old female who presented to the ER due to cough for 2 weeks in addition to fever at home (102*F). In the ER her SPO2 was 89% on RA. She does not follow up with physicians and the only medication she takes is "2 baby aspirins a day, my took 1 and he , so I take 2 to keep my blood thin". She has no known cardiac disease or pulmonary issues. She did smoke for 25 years but quit over 20 years ago. Was found to be in Afib/flutter in the ER with RVR but she spontaneously converted to NSR and has remained. She admits to feelings of pre-syncope and occasional palpitations since her cough has begun. She also admits to RLE edema. She is minimally ambulatory and is taken care of by family at home. She admits to a single episode of chest discomfort after coughing 2 days ago which resolved quickly. No episodes since. Past Med Surg Social Fam HX - Past Medical History Medical history: non-contributory Psychiatric history: no psych history - Past Surgical History Surgical History: appendectomy, hip replacement (Right), hysterectomy - Social History Smoking Status: Former smoker Packs per day: Quitted 24 years ago. Used to smoke 1/2 pack for 25 years. Smokeless Tobacco Status: No Alcohol use: none Drug use: none - Family History Brother Living Status: Hx Family Cardiac Disorders: Yes (ME) Hx Family Cancer: Yes (melanoma) Hx Family Neurologic Disorders: Yes (Alzheimer disease) Sister Living Status: Hx Family Genitourinary Disorders: Yes (kidney failure) Medications and Allergies Aspirin [Lo-Dose Aspirin EC] 162 mg PO DAILY 07/23/16 [History] Allergies No Known Allergies Allergy (Verified 07/22/16 21:50) All Systems Review: A 10-system review of systems was performed and is negative for pertinent findings except as documented above in the HPI. - Constitutional Constitutional: fatigue, fever(s) - EENT Eyes: no loss of vision - Cardiovascular Cardiovascular: chest pain at rest - Respiratory Respiratory: cough, dyspnea - Gastrointestinal Gastrointestinal: no abdominal pain - Genitourinary Genitourinary: other (incontinence) - Integumentary Integumentary: no rash Physical Examination Vital Signs, Last 4 Hours Temp Pulse Resp BP Pulse Ox 07/23/16 11:31 98.1 F 71 18 132/73 100 07/23/16 11:23 74 General: Conversant HEENT: Atraumatic Neck: No JVD Cardiac: Reg Rate and Rhythm, Normal S1 and S2 Lungs: Other (mild coarse rhonchi bilaterally) Neuro: Alert and responsive Abdomen: Soft Musculoskeletal: Other (RLE edema and erythema) Extremities: No Cyanosis, Normal Pulses Results 07/23/16 04:47 07/23/16 04:47 Lab Results 07/23/16 07/23/16 07/23/16 04:47 04:47 04:47 WBC 19.7 H Hgb 9.1 L Hct 30.5 L Plt Count 333 APTT Sodium 133 L Potassium 3.2 L Chloride 101 Carbon Dioxide 24 BUN 13 Creatinine 0.62 Glucose 125 H Calcium 8.9 Magnesium 1.7 Troponin I 0.05 H* TSH 1.432 07/23/16 07/23/16 09:26 09:29 WBC Hgb Hct Plt Count APTT 65.0 H D Sodium Potassium Chloride Carbon Dioxide BUN Creatinine Glucose Calcium Magnesium Troponin I 0.05 H* TSH Consult Discharge Plan - Plan Referrals: Bon Santillan MD [Partnered Physician] - 08/08/16 9:15 am (Please take to your appointment the new patient packet filled out that is being sent through the mail. Please take a picture ID, ins. cards all medication in the bottles. Show up 15 minutes early to your appointment. If you have to cancel please do so with in 24 hours of your appointment time at [phone]. Thanks)
[2016-07-23] MEDS: Simethicone 80 MG TAB.CHEW PO PRN (16:16)
--- NOTE | 2016-07-23 17:06 | Internal Med Progress Note ---
Date of Encounter: 07/23/16 Time of Encounter: 09:00 - Assessment and plan (1) DVT prophylaxis Current Visit: Yes Status: Acute Assessment and plan: Hepain SC (2) Paroxysmal atrial fibrillation with RVR Current Visit: Yes Status: Acute Assessment and plan: Switch to sinus rhythm now. Cardio consult appreciated. D/C heparin and place pt on ASA per cardio recommendation. (3) Acute and chronic respiratory failure with hypoxia Current Visit: Yes Status: Acute Assessment and plan: Suspect early stage pneumonia. Continue abx treatment and supportive treatment. (4) Bronchitis Current Visit: Yes Status: Acute Assessment and plan: Continue Abx, and supportive treatment. (5) Elevated troponin Current Visit: Yes Status: Acute Assessment and plan: Mild elevated troponin on A Fib RVR and fever setting, possibly demend ischemia , 3 sets of troponin stable. (6) Bacteremia Current Visit: Yes Status: Acute Assessment and plan: Blood culture shows GBS, probably from lung etiology. will repeat blood culture. Will order Echo. Continue abx. - Time Spent With Patient 25 - 35 minutes - Subjective Interval history: Patient is a 81-year-old female admitted for shortness of breath, fever and cough. She has no significant past medical history (Pt not following PCP for a long time). Patient was seen and examined. She has no fever, still cough and shortness of breath. Vital signs stable. Heart rate switch to sinus rhythm now. Cardiology consult appreciated. CTA shows negative for pulmonary embolism. We will follow TTE, and LE Doppler. Will DC heparin drip now. Pt is on ASA and SC heparin for CVA and DVT prophylaxis. Patient has a positive blood culture. We will repeat the blood culture and continue antibiotic. Antibiotic switched to azithromycin and Rocephin. - Constitutional Vitals: Temp Pulse Resp BP Pulse Ox 98.1 F 81 16 132/73 100 07/23/16 11:31 07/23/16 15:45 07/23/16 15:41 07/23/16 11:31 07/23/16 15:41 General appearance: Present: cooperative, A&O X 3, no acute distress, answers questions appropriately - Head Head exam: Present: atraumatic, normocephalic - Eye Eye exam: Present: PERRL, conjuntiva pink, sclera anicteric Pupils: Present: PERRL - Neck Neck exam general surgery: Present: supple, trachea midline. Absent: lymphadenopathy - Respiratory Respiratory exam: Present: CTAB. Absent: accessory muscle use, rales, rhonchi, wheezes - Cardiovascular Cardiovascular exam: Present: RRR, +S1, +S2. Absent: diastolic murmur, gallop, rubs, systolic murmur - GI/Abdominal GI/Abdominal exam: Present: normal bowel sounds, soft, no peritoneal signs. Absent: distended, tenderness - Extremities Exam Extremities exam: Present: warm, radial pulses palpable and symetrical. Absent : calf tenderness, cyanotic, pedal edema - Neurological Exam Neurological exam: Present: CN II-XII intact, oriented X3, no focal deficits. Absent: pronater drift, facial droop, speech deficit - Skin Skin exam: Present: dry, intact Internal Medicine: Result - Labs CBC & Chem 7: 07/23/16 04:47 07/23/16 04:47 Labs: Short CBC 07/23/16 Range/Units 04:47 WBC 19.7 H (4.3-11.1) K/mcL Hgb 9.1 L (11.5-15.4) g/dL Hct 30.5 L (35.3-44.9) % Plt Count 333 (140-400) K/mcL Neutrophils # 17.9 H (1.6-8.9) K/mcL BMP 07/23/16 04:47 Sodium 133 L Potassium 3.2 L Chloride 101 Carbon Dioxide 24 BUN 13 Creatinine 0.62 Glucose 125 H Calcium 8.9 Cardiac Enzymes 07/23/16 07/23/16 Range/Units 04:47 09:29 Troponin I 0.05 H* 0.05 H* (0-0.03) ng/mL - ABG Interpretation ABG results: PT/INR, D-dimer PT 14.3 Seconds (9.4-12.1) H 07/22/16 23:47 D-Dimer 1557 ng/mLFEU (0-500) H 07/22/16 23:47 - Impressions Impressions Chest CTA 07/23/16 12:15 IMPRESSION: 1. No pulmonary embolus. 2. Left base opacity is nonspecific and may represent atelectasis versus infection. 3. Elevation of the right hemidiaphragm with right base atelectasis. D/ / 07/23/2016 13:24:43 Angelica Perez MD / Rachel Schuster Interpreting Provider: Angelica Perez MD Consult Discharge Plan - Plan Referrals: Bon Santillan MD [Partnered Physician] - 08/08/16 9:15 am (Please take to your appointment the new patient packet filled out that is being sent through the mail. Please take a picture ID, ins. cards all medication in the bottles. Show up 15 minutes early to your appointment. If you have to cancel please do so with in 24 hours of your appointment time at [phone]. Thanks)
[2016-07-23] MEDS: *HR* Heparin 5,000 UNIT/ML VIAL SQ SCH (17:25)
[2016-07-23] MEDS: Azithromycin 500 MG in D5% in Water 250 ML IVPB SCH (17:28)
--- NOTE | 2016-07-23 18:33 | Electrocardiograph Report ---
[address] [place], [place] [address] Test Date: 2016-07-22 Pat Name: Debbi García Department: 102 Room: 2N10 Gender: F Evs Manager: Pedro : 1935 Requested By: Renate Harper Order Number: [id number] Reading MD: Damaso Morales MD Measurements Intervals [place] Rate: 131 P: 60 SD: 164 QRS: -48 QRSD: 79 T: 28 QT: 303 QTc: 380 Interpretive Statements SINUS TACHYCARDIA WITH OCCASIONAL VENTRICULAR PREMATURE COMPLEXES WITH OCCASIONAL SUPRAVENTRICULAR PREMATURE COMPLEXES LEFT ANTERIOR FASCICULAR BLOCK INFERIOR MYOCARDIAL INFARCTION, PROBABLY OLD Electronically Signed On 07-23-2016 18:32:31 EDT by Damaso Morales MD
--- NOTE | 2016-07-23 18:37 | Electrocardiograph Report ---
[address] [place], [place] [address] Test Date: 2016-07-22 Pat Name: Debbi García Department: 102 Room: 2N10 Gender: Notch Machine Operator: [facility] : 1935 Requested By: Zara Kevin Order Number: [id number] Reading MD: Damaso Morales MD Measurements Intervals [place] Rate: 119 P: 58 IA: 154 QRS: -41 QRSD: 86 T: 30 QT: 319 QTc: 389 Interpretive Statements SINUS TACHYCARDIA WITH FREQUENT SUPRAVENTRICULAR PREMATURE COMPLEXES MARKED LEFT AXIS DEVIATION POSSIBLE INFERIOR MYOCARDIAL INFARCTION, PROBABLY OLD Electronically Signed On 07-23-2016 18:35:29 EDT by Damaso Morales MD
--- NOTE | 2016-07-23 18:38 | Electrocardiograph Report ---
[place] [address] Test Date: 2016-07-23 Pat Name: Debbi García Department: 102 Room: 2N10 Gender: F Marketing Development Representative: Rosa : 1935 Requested By: Zara Kevin Order Number: [id number] Reading MD: Damaso Morales MD Measurements Intervals [place] Rate: 155 P: VT: 0 QRS: -5 QRSD: 71 T: 6 QT: 276 QTc: 363 Interpretive Statements ATRIAL FBIRLLATION WITH RAPID VENTRICULAR RESPONSE Electronically Signed On 07-23-2016 18:36:31 EDT by Damaso Morales MD
[2016-07-24] MEDS: Ipratropium/Albuterol Neb 3 ML IH SCH ×2 (05:12→10:15)
[2016-07-24 05:16] LABS: Eosinophils # 0.1 K/mcL (0.0-0.6); Hematocrit 24.3 % (35.3-44.9); Mean Corpuscular HGB Conc 29.2 g/dL (31.6-35.5); Mean Corpuscular Hemoglobin 19.9 pg (28.0-33.3); Mean Corpuscular Volume 68.1 fL (83.0-100.0); Mean Platelet Volume 9.6 fL (9.4-12.4); Platelet Count 260 K/mcL (140-400); Red Blood Count 3.57 M/mcL (3.82-4.97)
[2016-07-24 05:37] LABS: BUN/Creatinine Ratio 22 (6-26); Blood Urea Nitrogen 13 mg/dL (7-20); Calcium 8.2 mg/dL (8.6-10.8); Carbon Dioxide 24 mEq/L (19-29); Chloride 105 mEq/L (98-109); Glucose 95 mg/dL (70-99); Osmolality,Calculated 282 (280-300); Potassium 3.4 mEq/L (3.5-4.5); Sodium 136 mEq/L (136-145); eGFR For African Americans > 60 (> 60); eGFR For Non-African Americans > 60 (> 60)
[2016-07-24] MEDS: *HR* Heparin 5,000 UNIT/ML VIAL SQ SCH ×2 (05:45→16:42)
[2016-07-24 05:49] LABS: Hemoglobin 7.1 g/dL (11.5-15.4)
[2016-07-24 06:23] LABS: Lymphocytes # 0.8 K/mcL (0.6-4.6); Monocytes # 0.5 K/mcL (0.0-1.3); Neutrophils # 4.5 K/mcL (1.6-8.9)
[2016-07-24 06:24] LABS: Large Platelets Present (Not Present); Microcytosis Present (Not Present); Platelet Estimate Normal (Normal)
[2016-07-24 06:25] LABS: Hypochromasia Present (Not Present)
[2016-07-24] MEDS: 0.9 % Sodium Chloride 1,000 ML IVC SCH (08:30)
[2016-07-24] MEDS: Aspirin 81 MG TAB.CHEW PO SCH (08:34)
[2016-07-24] MEDS: Pantoprazole 40 MG VIAL IVP SCH (08:36)
--- NOTE | 2016-07-24 08:51 | ECHO - Doppler Report ---
Echocardiogram Name: Debbi García Date of Study: 07/23/2016 Date: 1935 Ht: 60.0 in Medical Record#: [id number] Age: 81 Wt: 130.0 lb Gender: Female BSA: 1.55 Order #: [id number] Location: [facility] Room #: 2N10 Reading Physician: Rosa Sethi DO Industrial Machine System Technician: Sarita Arthur Ordering Physician: Chika Jane DO Primary Physician: None Indications: Chest pain with elevated troponin Impressions: LVEF 60-65%. Normal left ventricular size and systolic function. There is evidence of mild diastolic dysfunction of the left ventricle. Normal right ventricular size and function. No significant valvular dysfunction. No pulmonary hypertension. Left Ventricular Wall Motion: Rest Echo Findings All wall segments showed normal motion. Findings: Study Quality * Technically adequate exam. ECG Findings * Normal sinus rhythm. Left Ventricle * LVEF 60-65%. * Normal LV chamber size, wall thickness and function. * Mild left ventricular diastolic dysfunction. Right Ventricle * Normal right ventricular structure and function. Aortic Valve * No aortic regurgitation. * No aortic stenosis. * Mildly calcified aortic valve leaflets. Mitral Valve * No mitral regurgitation. * No mitral stenosis. * Mitral valve is suboptimally visualized but appears to demonstrate normal leaflet excursion. Tricuspid Valve * Tricuspid valve not well visualized. * Trace tricuspid regurgitation. Pulmonic Valve * Pulmonic valve is not well visualized. * No pulmonic stenosis. * No pulmonic regurgitation. Left Atrium * Normal left atrial size. Right Atrium * Normal right atrial size. Aorta * Not well visualized. Pulmonary Artery * Pulmonary artery not well visualized. Pericardium * There is no pericardial effusion present. IVC * The IVC is not well evaluated. Interatrial Septum * Interatrial septum not well evaluated. History Years 25 Packs 0.5 Family History of CAD Measurements: BP: 93/ 46 2D Normal Values RVIDd: 2.80 cm <2.7 cm IVSd: 1.10 cm 0.6 - 1.0 cm LVIDd: 3.00 cm 3.7 - 5.6 cm LVPWd: 1.10 cm 0.6 - 1.1 cm LVIDs: 2.20 cm 1.5 - 3.6 cm AO: 3.40 cm < 4.0 cm LA: 4.10 cm 2.0 - 4.0cm %FS: 26.70 cm >25 % LA volume: 39 Mitral Valve Peak E:.59 m/sec Peak A:.91 m/sec E/A Ratio:0.6 Peak E' Lat Jb:3.9 cm/s Peak E' Med Jb:4 cm/s E/E' Lat Ratio:15.1 E/E' Med Ratio:14.7 Tricuspid Valve TV Regurg Peak Grad: 13.00mmHg TV Regurg Peak Jb: 1.78m/sec Updated by Rosa Sethi on 07/24/2016 8:44:56 AM electronically signed on 07/24/2016 8:46:37 AM with status of Final Wall Motion Trin[place]: 1=Normal, 2=Hypokinesis, 3=Akinesis, 4=Dyskinesis, 5=Aneurysmal, 6=Hyperkinetic, X=Not Visualized (Blank)=Missing
--- NOTE | 2016-07-24 10:26 | Cardiology Progress Note ---
Date of Encounter: 07/24/16 Time of Encounter: 10:24 Assessment and Plan (1) Paroxysmal atrial fibrillation with RVR Current Visit: Yes Status: Acute New onset paroxysmal atrial fibrillation in the setting of bacteremia, hypoxia, cough, leukocytosis Not currently in a-fib Recommend making sure she is on aspirin After infectious etiology is resolved and if a-fib is still resolved, there will be no need for anticoagulation. Echo shows grossly normal function with EF of 65%, and mild diastolic dysfunction. Will need to follow up in clinic in 2 weeks. Cardiology signing off. Please call if there are any additional questions/ concerns. (2) Bacteremia Current Visit: Yes Status: Acute PCR and blood culture positive Source is likely pulmonary (cough, with productive sputum, and hypoxia) Being treated by primary team (3) Acute and chronic respiratory failure with hypoxia Current Visit: Yes Status: Acute Likely due to infectious etiology Discussion w patient/family: The assessment and plan as outlined above was discussed with the patient and/or family members who expressed understanding and agreement. All questions were answered. Thank you for involving us in the care of your patient. Please call with any questions. Subjective Interval history: No acute events overnight. Her complaint is that she is now "losing her voice" and it is made worse by the breathing treatments. Denies any pain. Denies difficulty swallowing. Denies difficulty breathing. Denies CP. No events of a -fib seen overnight. Vitals have been stable. Echo is grossly normal aside form mild diastolic dysfunction. Objective Vital Signs, Last 4 Hours Temp Pulse Resp BP Pulse Ox 07/24/16 10:00 97.8 F 61 18 101/63 96 07/24/16 08:35 97.8 F 85 18 101/63 96 07/24/16 07:58 97.8 F 85 18 101/63 96 General: Conversant HEENT: Atraumatic Neck: No JVD Cardiac: Reg Rate and Rhythm, Normal S1 and S2 Lungs: Normal Breath Sounds Neuro: Alert and responsive Abdomen: Soft Extremities: No Cyanosis, Other (RLE edema) Results 07/24/16 04:24 07/24/16 04:24 Lab Results 07/23/16 07/24/16 07/24/16 16:32 04:24 04:24 WBC 5.9 D Hgb 7.1 L D Hct 24.3 L Plt Count 260 APTT 54.7 H Sodium 136 Potassium 3.4 L Chloride 105 Carbon Dioxide 24 BUN 13 Creatinine 0.59 Glucose 95 Calcium 8.2 L Consult Discharge Plan - Plan Referrals: Bon Santillan MD [Partnered Physician] - 08/08/16 9:15 am (Please take to your appointment the new patient packet filled out that is being sent through the mail. Please take a picture ID, ins. cards all medication in the bottles. Show up 15 minutes early to your appointment. If you have to cancel please do so with in 24 hours of your appointment time at [phone]. Thanks)
[2016-07-24] MEDS ORDERED: 0.9 % Sodium Chloride 250 ML ONE (11:43)
--- NOTE | 2016-07-24 13:57 | Venous Imaging Report ---
LE Venous Duplex Patient Name:Debbi García Order Number:[id number] Procedure Date:07/23/2016 Date:6Age:81 yrs Gender:Female Location:[facility] Room #: 2N10 Search Marketing Specialist:Sarita Arthur Referring MD:Chika Jane DO machinery rigger:None Reading MD:Derik Rudd MD Primary Indications:Right LE swelling with elevated D-dimer Secondary Indications: Risk Factors Yes/No Anticoagulants Impressions: Normal bilateral lower extremity deep and superficial venous exam. Findings Prior Study: No prior study available for comparison. Lower Extremity Venous Duplex Side Vein Compress Spontaneous Flow Augment Diameter (cm) Depth (cm) Right Distal Iliac Normal Yes Phasic Yes Right Common Femoral Normal Yes Phasic Yes Right Superficial Femoral Normal Yes Phasic Yes Right Popliteal Normal Yes Phasic Yes Right Posterior Tibial Normal Yes Phasic Yes Right Peroneal Normal Yes Phasic Yes Right Saphenofemoral [place] Normal Yes Phasic Yes Right Great Saphenous Normal Yes Phasic Yes Right Lesser Saphenous Normal Yes Phasic Yes Left Distal Iliac Normal Yes Phasic Yes Left Common Femoral Normal Yes Phasic Yes Left Superficial Femoral Normal Yes Phasic Yes Left Popliteal Normal Yes Phasic Yes Left Posterior Tibial Normal Yes Phasic Yes Left Peroneal Normal Yes Phasic Yes Left Saphenofemoral [place] Normal Yes Phasic Yes Left Great Saphenous Normal Yes Phasic Yes Left Lesser Saphenous Normal Yes Phasic Yes Updated by Derik Rudd MD on 07/24/2016 1:53:26 PM electronically signed on 07/24/2016 1:53:51 PM with status of Final
[2016-07-24] MEDS: Azithromycin 500 MG in D5% in Water 250 ML IVPB SCH (16:44)
--- NOTE | 2016-07-24 17:23 | Internal Med Progress Note ---
Date of Encounter: 07/24/16 Time of Encounter: 09:00 - Assessment and plan (1) DVT prophylaxis Current Visit: Yes Status: Acute Assessment and plan: Hepain SC (2) Paroxysmal atrial fibrillation with RVR Current Visit: Yes Status: Acute Assessment and plan: Switch to sinus rhythm now. Cardio consult appreciated. Will follow cardio recommendation. (3) Acute and chronic respiratory failure with hypoxia Current Visit: Yes Status: Acute Assessment and plan: Suspect early stage pneumonia. Continue abx treatment and supportive treatment. (4) Bronchitis Current Visit: Yes Status: Acute Assessment and plan: Continue Abx, and supportive treatment. (5) Elevated troponin Current Visit: Yes Status: Acute Assessment and plan: Mild elevated troponin on A Fib RVR and fever setting, possibly demend ischemia , 3 sets of troponin stable. (6) Bacteremia Current Visit: Yes Status: Acute Assessment and plan: Blood culture shows GBS, probably from lung etiology. will repeat blood culture. Unremarkable Echo result. Continue abx. - Time Spent With Patient 25 - 35 minutes - Subjective Interval history: Patient is a 81-year-old female admitted for shortness of breath, fever and cough. She has no significant past medical history (Pt not following PCP for a long time). Patient was seen and examined. She has no fever, still cough. shortness of breath has improved. Vital signs stable. Keep on sinus rhythm. Pt has low Hgb to 7.1 today, no clear signs of active bleeding, possibly dilutional. Pt has MCV at 68.1 with low iron and ferrintin level, may have chronic iron deficiency anemia. We will give 1 unit of PRBC transfusion today. Give Iron pill. Follow up H&H. I will continue antibiotic treatment. Patient has no wheezing, she developed hoarseness after nebulizer treatment, will discontinue bronchodilator nebulizer. - Constitutional Vitals: Temp Pulse Resp BP Pulse Ox 97.8 F 71 18 127/62 96 07/24/16 15:56 07/24/16 15:56 07/24/16 15:56 07/24/16 15:56 07/24/16 15:56 General appearance: Present: cooperative, A&O X 3, no acute distress, answers questions appropriately - Head Head exam: Present: atraumatic, normocephalic - Eye Eye exam: Present: PERRL, conjuntiva pink, sclera anicteric Pupils: Present: PERRL - Neck Neck exam general surgery: Present: supple, trachea midline. Absent: lymphadenopathy - Respiratory Respiratory exam: Present: CTAB. Absent: accessory muscle use, rales, rhonchi, wheezes - Cardiovascular Cardiovascular exam: Present: RRR, +S1, +S2. Absent: diastolic murmur, gallop, rubs, systolic murmur - GI/Abdominal GI/Abdominal exam: Present: normal bowel sounds, soft, no peritoneal signs. Absent: distended, tenderness - Extremities Exam Extremities exam: Present: warm, radial pulses palpable and symetrical. Absent : calf tenderness, cyanotic, pedal edema - Neurological Exam Neurological exam: Present: CN II-XII intact, oriented X3, no focal deficits. Absent: pronater drift, facial droop, speech deficit - Skin Skin exam: Present: dry, intact Internal Medicine: Result - Labs CBC & Chem 7: 07/24/16 04:24 07/24/16 04:24 Labs: Short CBC 07/24/16 Range/Units 04:24 WBC 5.9 D (4.3-11.1) K/mcL Hgb 7.1 L D (11.5-15.4) g/dL Hct 24.3 L (35.3-44.9) % Plt Count 260 (140-400) K/mcL Neutrophils # 4.5 (1.6-8.9) K/mcL BMP 07/24/16 04:24 Sodium 136 Potassium 3.4 L Chloride 105 Carbon Dioxide 24 BUN 13 Creatinine 0.59 Glucose 95 Calcium 8.2 L - ABG Interpretation ABG results: PT/INR, D-dimer PT 14.3 Seconds (9.4-12.1) H 07/22/16 23:47 D-Dimer 1557 ng/mLFEU (0-500) H 07/22/16 23:47 Consult Discharge Plan - Plan Referrals: Bon Santillan MD [Partnered Physician] - 08/08/16 9:15 am (Please take to your appointment the new patient packet filled out that is being sent through the mail. Please take a picture ID, ins. cards all medication in the bottles. Show up 15 minutes early to your appointment. If you have to cancel please do so with in 24 hours of your appointment time at [phone]. Thanks)
[2016-07-25 04:49] LABS: Basophils % 0.8 %; Eosinophils # 0.1 K/mcL (0.0-0.6); Hematocrit 29.7 % (35.3-44.9); Lymphocytes # 2.1 K/mcL (0.6-4.6); Lymphocytes % 41.7 %; Mean Corpuscular Hemoglobin 21.7 pg (28.0-33.3); Mean Corpuscular Volume 72.4 fL (83.0-100.0); Mean Platelet Volume 10.2 fL (9.4-12.4); Monocytes # 0.4 K/mcL (0.0-1.3); Monocytes % 8.9 %; Neutrophils # 2.3 K/mcL (1.6-8.9); Platelet Count 283 K/mcL (140-400); Red Cell Distribution Width 20.7 % (11.5-14.5); Segmented Neutrophils % 45.6 %
[2016-07-25 04:59] LABS: BUN/Creatinine Ratio 14 (6-26); Blood Urea Nitrogen 9 mg/dL (7-20); Calcium 8.7 mg/dL (8.6-10.8); Carbon Dioxide 25 mEq/L (19-29); Chloride 107 mEq/L (98-109); Glucose 93 mg/dL (70-99); Osmolality,Calculated 288 (280-300); Potassium 4.2 mEq/L (3.5-4.5); Sodium 140 mEq/L (136-145); eGFR For African Americans > 60 (> 60); eGFR For Non-African Americans > 60 (> 60)
[2016-07-25 05:07] LABS: Hemoglobin 8.9 g/dL (11.5-15.4)
[2016-07-25] MEDS: *HR* Heparin 5,000 UNIT/ML VIAL SQ SCH ×2 (06:16→17:08)
[2016-07-25] MEDS: 0.9 % Sodium Chloride 1,000 ML IVC SCH (06:19)
[2016-07-25] MEDS: Pantoprazole 40 MG VIAL IVP SCH (07:48)
--- NOTE | 2016-07-25 16:42 | ENT - Consult Note ---
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 White female with new onset hoarseness consistent with functional dysphonia recommending a tincture of time patient instructed to not strain when speaking and 2 try her best to relax so that her vocal cords are not strained when she speaking in the absence of any physical findings are [place] vocal cord paralysis tumors or infection of the vocal cords I am recommending this patient follow-up in my office on August 04 if this problem persists we should reevaluate the vocal cords at that time and consider speech pathology for counseling on vocal strain no medical therapy recommended this problem is essentially cerebral and often resolves on its own without any intervention History of Present Illness Consult date: 07/25/16 Reason for ENT Consult: other (new onset hoarseness) History of present illness: Very pleasant white female who has a significant voice dysfunction which started several days ago with the institution of her inhaler therapy for bronchitis agent notices significant tension with the voice and a feeling like she is almost choking the voice gets fatigued and tired and she talks and every once in a while she will actually speak in a normal voice she is not having any problems with swallowing and has never had this problem before Past Med Surg Social Fam HX - Past Medical History Medical history: non-contributory Psychiatric history: no psych history - Past Surgical History Surgical History: appendectomy, hip replacement (Right), hysterectomy - Social History Smoking Status: Former smoker Packs per day: Quitted 24 years ago. Used to smoke 1/2 pack for 25 years. Smokeless Tobacco Status: No Alcohol use: none Drug use: none - Family History Brother Living Status: Hx Family Cardiac Disorders: Yes ([place]) Hx Family Cancer: Yes (melanoma) Hx Family Neurologic Disorders: Yes (Alzheimer disease) Sister Living Status: Hx Family Genitourinary Disorders: Yes (kidney failure) Medications and Allergies Aspirin [Lo-Dose Aspirin EC] 162 mg PO DAILY 07/23/16 [History] Allergies No Known Allergies Allergy (Verified 07/22/16 21:50) ENT Exam Initial Vital Signs Temp Pulse Resp BP Pulse Ox 99.2 F 117 31 161/97 96 07/22/16 21:51 07/22/16 21:51 07/22/16 21:51 07/22/16 21:51 07/22/16 21:51 - General physical appearance well developed, well nourished, no distress, no pain. negative: moderate distress, severe distress, moderate pain, severe pain, cachectic, obese - Eyes PERRL, normal ocular movement, icteric - ENT normal pinna, normal nares, normal mucosa, Other (Vocal cord evaluation using a flexible endoscope after anesthesia of the left nostril revealed normally mobile vocal cords without any evidence of inflammation vocal quality varied occasionally she almost had a normal sounding voice) - Neck no masses, trachea midline, no lymphadectomy. negative: deviated trachea, diffuse goiter, limited ROM - Respiratory normal expansion, normal respiratory effort, clear to percussion, clear to auscultation - Abdomen Abdomen: soft, non tender, bowel sounds, no tender, no surgical scars - Integumentary no rash, no growths, no abnormal pigmentation - Neurologic normal coordination, normal sensation - Musculoskeletal normal gait, normal posture - Psychiatric oriented to time, oriented to person, oriented to place, speech is normal, memory intact Exam Initial Vital Signs Temp Pulse Resp BP Pulse Ox 99.2 F 117 31 161/97 96 07/22/16 21:51 07/22/16 21:51 07/22/16 21:51 07/22/16 21:51 07/22/16 21:51 Results - Labs 07/25/16 04:06 07/25/16 04:06 Abnormal lab results Hgb 8.9 g/dL (11.5-15.4) L D 07/25/16 04:06 Hct 29.7 % (35.3-44.9) L 07/25/16 04:06 MCV 72.4 fL (83.0-100.0) L 07/25/16 04:06 MCH 21.7 pg (28.0-33.3) L 07/25/16 04:06 MCHC 30.0 g/dL (31.6-35.5) L 07/25/16 04:06 RDW 20.7 % (11.5-14.5) H 07/25/16 04:06 Toxic Granulation Present (Not Present) A 07/22/16 22:00 Large Platelets Present (Not Present) A 07/24/16 04:24 Hypochromasia Present (Not Present) A 07/24/16 04:24 Microcytosis Present (Not Present) A 07/24/16 04:24 PT 14.3 Seconds (9.4-12.1) H 07/22/16 23:47 APTT 54.7 Seconds (26.0-36.0) H 07/23/16 16:32 D-Dimer 1557 ng/mLFEU (0-500) H 07/22/16 23:47 Phosphorus 1.9 mg/dL (2.3-4.7) L 07/23/16 04:47 Iron 12 mcg/dL (50-170) L 07/23/16 04:47 % Saturation 3 % (15-50) L 07/23/16 04:47 Troponin I 0.05 ng/mL (0-0.03) H* 07/23/16 09:29 B-Natriuretic Peptide 127 pg/mL (0-100) H 07/22/16 22:00 Albumin 3.1 g/dL (3.5-5.0) L 07/22/16 22:00 Globulin 3.9 g/dL (2.4-3.5) H 07/22/16 22:00 Albumin/Globulin Ratio 0.8 (1.1-2.2) L 07/22/16 22:00 Urine Ketones 15 mg/dL (Negative) H 07/22/16 22:55 Urine Bilirubin Moderate (Negative) H 07/22/16 22:55 Urine Urobilinogen 4.0 mg/dL (Normal) H 07/22/16 22:55 Streptococcus sp PCR DETECTED (Not Detect) A 07/22/16 22:00 Group B Strep (PCR) DETECTED (Not Detect) A 07/22/16 22:00 Diabetes panel 07/25/16 Range/Units 04:06 Sodium 140 (136-145) mEq/L Potassium 4.2 (3.5-4.5) mEq/L Chloride 107 (98-109) mEq/L Carbon Dioxide 25 (19-29) mEq/L BUN 9 (7-20) mg/dL Creatinine 0.66 (0.57-1.11) mg/dL Glucose 93 (70-99) mg/dL Calcium 8.7 (8.6-10.8) mg/dL Calcium panel 07/25/16 Range/Units 04:06 Calcium 8.7 (8.6-10.8) mg/dL Pituitary panel 07/25/16 Range/Units 04:06 Sodium 140 (136-145) mEq/L Potassium 4.2 (3.5-4.5) mEq/L Chloride 107 (98-109) mEq/L Carbon Dioxide 25 (19-29) mEq/L BUN 9 (7-20) mg/dL Creatinine 0.66 (0.57-1.11) mg/dL Glucose 93 (70-99) mg/dL Calcium 8.7 (8.6-10.8) mg/dL Adrenal panel 07/25/16 Range/Units 04:06 Sodium 140 (136-145) mEq/L Potassium 4.2 (3.5-4.5) mEq/L Chloride 107 (98-109) mEq/L Carbon Dioxide 25 (19-29) mEq/L BUN 9 (7-20) mg/dL Creatinine 0.66 (0.57-1.11) mg/dL Glucose 93 (70-99) mg/dL Calcium 8.7 (8.6-10.8) mg/dL All other labs normal. Consult Discharge Plan - Plan Referrals: Bon Santillan MD [Partnered Physician] - 08/08/16 9:15 am (Please take to your appointment the new patient packet filled out that is being sent through the mail. Please take a picture ID, ins. cards all medication in the bottles. Show up 15 minutes early to your appointment. If you have to cancel please do so with in 24 hours of your appointment time at [phone]. Thanks) Leonila Casper CNP [Partnered Physician] - (Office will call patient at home with her appointment)
--- NOTE | 2016-07-25 16:53 | Internal Med Progress Note ---
Date of Encounter: 07/25/16 Time of Encounter: 10:00 - Assessment and plan (1) DVT prophylaxis Current Visit: Yes Status: Acute Assessment and plan: Hepain SC (2) Paroxysmal atrial fibrillation with RVR Current Visit: Yes Status: Acute Assessment and plan: Switch to sinus rhythm now. Cardio consult appreciated. Will follow cardio recommendation. (3) Acute and chronic respiratory failure with hypoxia Current Visit: Yes Status: Acute Assessment and plan: Suspect early stage pneumonia. Continue abx treatment and supportive treatment. (4) Bronchitis Current Visit: Yes Status: Acute Assessment and plan: Continue Abx, and supportive treatment. (5) Elevated troponin Current Visit: Yes Status: Acute Assessment and plan: Mild elevated troponin on A Fib RVR and fever setting, possibly demend ischemia , 3 sets of troponin stable. (6) Bacteremia Current Visit: Yes Status: Acute Assessment and plan: Blood culture shows GBS, probably from lung etiology. will repeat blood culture. Unremarkable Echo result. Continue abx per sensitivity. - Time Spent With Patient 25 - 35 minutes - Subjective Interval history: Patient is a 81-year-old female admitted for shortness of breath, fever and cough. She has no significant past medical history (Pt not following PCP for a long time). Patient was seen and examined. She has no fever, still cough. shortness of breath has resolved. Vital signs stable. Keep on sinus rhythm. H&H stable after transfusion. Blood culture result shows GBS sensitive to Rocephin, patient is on Rocephin now. Repeated blood culture negative. - Constitutional Vitals: Temp Pulse Resp BP Pulse Ox 98.1 F 67 18 153/76 96 07/25/16 16:05 07/25/16 16:05 07/25/16 16:05 07/25/16 16:05 07/25/16 16:05 General appearance: Present: cooperative, A&O X 3, no acute distress, answers questions appropriately - Head Head exam: Present: atraumatic, normocephalic - Eye Eye exam: Present: PERRL, conjuntiva pink, sclera anicteric Pupils: Present: PERRL - Neck Neck exam general surgery: Present: supple, trachea midline. Absent: lymphadenopathy - Respiratory Respiratory exam: Present: CTAB. Absent: accessory muscle use, rales, rhonchi, wheezes - Cardiovascular Cardiovascular exam: Present: RRR, +S1, +S2. Absent: diastolic murmur, gallop, rubs, systolic murmur - GI/Abdominal GI/Abdominal exam: Present: normal bowel sounds, soft, no peritoneal signs. Absent: distended, tenderness - Extremities Exam Extremities exam: Present: warm, radial pulses palpable and symetrical. Absent : calf tenderness, cyanotic, pedal edema - Neurological Exam Neurological exam: Present: CN II-XII intact, oriented X3, no focal deficits. Absent: pronater drift, facial droop, speech deficit - Skin Skin exam: Present: dry, intact Internal Medicine: Result - Labs CBC & Chem 7: 07/25/16 04:06 07/25/16 04:06 Labs: Short CBC 07/25/16 Range/Units 04:06 WBC 5.0 (4.3-11.1) K/mcL Hgb 8.9 L D (11.5-15.4) g/dL Hct 29.7 L (35.3-44.9) % Plt Count 283 (140-400) K/mcL Neutrophils # 2.3 (1.6-8.9) K/mcL BMP 07/25/16 04:06 Sodium 140 Potassium 4.2 Chloride 107 Carbon Dioxide 25 BUN 9 Creatinine 0.66 Glucose 93 Calcium 8.7 - ABG Interpretation ABG results: PT/INR, D-dimer PT 14.3 Seconds (9.4-12.1) H 07/22/16 23:47 D-Dimer 1557 ng/mLFEU (0-500) H 07/22/16 23:47 Consult Discharge Plan - Plan Referrals: Bon Santillan MD [Partnered Physician] - 08/08/16 9:15 am (Please take to your appointment the new patient packet filled out that is being sent through the mail. Please take a picture ID, ins. cards all medication in the bottles. Show up 15 minutes early to your appointment. If you have to cancel please do so with in 24 hours of your appointment time at [phone]. Thanks) Leonila Casper, IRIS [Partnered Physician] - (Office will call patient at home with her appointment)
[2016-07-26 04:51] LABS: Basophils % 0.5 %; Eosinophils # 0.1 K/mcL (0.0-0.6); Eosinophils % 1.6 %; Hematocrit 28.9 % (35.3-44.9); Hemoglobin 8.9 g/dL (11.5-15.4); Immature Granulocytes % 1.6 % (0-4); Lymphocytes # 1.4 K/mcL (0.6-4.6); Mean Corpuscular HGB Conc 30.8 g/dL (31.6-35.5); Mean Corpuscular Volume 71.4 fL (83.0-100.0); Mean Platelet Volume 9.9 fL (9.4-12.4); Monocytes # 0.4 K/mcL (0.0-1.3); Monocytes % 7.1 %; Neutrophils # 3.5 K/mcL (1.6-8.9); Platelet Count 302 K/mcL (140-400); Red Blood Count 4.05 M/mcL (3.82-4.97); Red Cell Distribution Width 21.2 % (11.5-14.5); Segmented Neutrophils % 64.2 %
[2016-07-26 05:04] LABS: BUN/Creatinine Ratio 11 (6-26); Blood Urea Nitrogen 7 mg/dL (7-20); Carbon Dioxide 25 mEq/L (19-29); Chloride 106 mEq/L (98-109); Glucose 111 mg/dL (70-99); Osmolality,Calculated 281 (280-300); Potassium 3.6 mEq/L (3.5-4.5); Sodium 136 mEq/L (136-145); eGFR For African Americans > 60 (> 60); eGFR For Non-African Americans > 60 (> 60)
[2016-07-26] MEDS: *HR* Heparin 5,000 UNIT/ML VIAL SQ SCH ×2 (05:32→17:59)
--- NOTE | 2016-07-26 08:24 | Internal Med Progress Note ---
Date of Encounter: 07/26/16 Time of Encounter: 08:20 - Assessment and plan (1) Paroxysmal atrial fibrillation with RVR Current Visit: Yes Status: Acute Assessment and plan: now in sinus rhythm seen by cardiology echo normal lv function (2) Acute and chronic respiratory failure with hypoxia Current Visit: Yes Status: Acute Assessment and plan: clinically better patient refusing breathing treatment (3) Elevated troponin Current Visit: Yes Status: Acute Assessment and plan: mild in setting of sepsis and PAF see cardiology evaluation no further cardiac evaluation (4) Microcytic anemia Current Visit: Yes Status: Chronic Assessment and plan: chronic no active GI bleed discussed with nurse to check guiac stools again (5) Bacteremia Current Visit: Yes Status: Acute Assessment and plan: clinically responding to rocephin (6) Functional dysphonia Current Visit: Yes Status: Acute Assessment and plan: SEE ENT evaluation patient voice is better - Subjective Interval history: Patient with no significant medical history except for high blood pressure because she has not been seen a doctor for several years patient was brought in due to shortness from primary physician office where she was seen for symptoms 2 weeks of shortness of breath, productive cough and wheezing also has some chills and fever and some chest pain and palpitation she was found in the defibrillation with rapid ventricular response of which she is now back to normal sinus rhythm CTA of the chest showed no pulmonary embolism blood cultures positive for gm negative - Constitutional Vitals: Temp Pulse Resp BP Pulse Ox 98.2 F 69 16 159/73 96 07/26/16 07:26 07/26/16 07:26 07/26/16 07:26 07/26/16 07:26 07/26/16 07:26 General appearance: Present: cooperative, A&O X 3, no acute distress, answers questions appropriately - Head Head exam: Present: atraumatic, normocephalic - Eye Eye exam: Present: PERRL, conjuntiva pink, sclera anicteric Pupils: Present: PERRL - Neck Neck exam general surgery: Present: supple, trachea midline. Absent: lymphadenopathy - Respiratory Respiratory exam: Present: prolonged expiratory phase, wheezes - Cardiovascular Cardiovascular exam: Present: RRR, +S1, +S2. Absent: diastolic murmur, gallop, rubs, systolic murmur - GI/Abdominal GI/Abdominal exam: Present: normal bowel sounds, soft, no peritoneal signs. Absent: distended, tenderness - Extremities Exam Extremities exam: Present: warm, radial pulses palpable and symetrical. Absent : calf tenderness, cyanotic, pedal edema - Neurological Exam Neurological exam: Present: CN II-XII intact, oriented X3, no focal deficits. Absent: pronater drift, facial droop, speech deficit Internal Medicine: Result - Labs CBC & Chem 7: 07/26/16 04:39 07/26/16 04:39 Labs: Short CBC 07/26/16 Range/Units 04:39 WBC 5.5 (4.3-11.1) K/mcL Hgb 8.9 L (11.5-15.4) g/dL Hct 28.9 L (35.3-44.9) % Plt Count 302 (140-400) K/mcL Neutrophils # 3.5 (1.6-8.9) K/mcL BMP 07/26/16 04:39 Sodium 136 Potassium 3.6 Chloride 106 Carbon Dioxide 25 BUN 7 Creatinine 0.61 Glucose 111 H Calcium 9.0 - ABG Interpretation ABG results: PT/INR, D-dimer PT 14.3 Seconds (9.4-12.1) H 07/22/16 23:47 D-Dimer 1557 ng/mLFEU (0-500) H 07/22/16 23:47 Consult Discharge Plan - Plan Referrals: Bon Santillan MD [Partnered Physician] - 08/08/16 9:15 am (Please take to your appointment the new patient packet filled out that is being sent through the mail. Please take a picture ID, ins. cards all medication in the bottles. Show up 15 minutes early to your appointment. If you have to cancel please do so with in 24 hours of your appointment time at [phone]. Thanks) Leonila Casper, IRIS [Partnered Physician] - (Office will call patient at home with her appointment)
[2016-07-26] MEDS: Pantoprazole 40 MG VIAL IVP SCH (09:19)
[2016-07-27] MEDS: *HR* Heparin 5,000 UNIT/ML VIAL SQ SCH ×2 (05:57→16:51)
[2016-07-27] MEDS: Pantoprazole 40 MG VIAL IVP SCH (08:38)
[2016-07-27] MEDS: Simethicone 80 MG TAB.CHEW PO PRN (09:19)
[2016-07-27] MEDS ORDERED: Patient Taking Own Medication 1 EACH PO PRN (09:25)
[2016-07-27] MEDS ORDERED: GAS RELIEF PO PRN (10:42)
--- NOTE | 2016-07-27 12:42 | Internal Med Progress Note ---
Date of Encounter: 07/27/16 Time of Encounter: 12:40 - Assessment and plan (1) Paroxysmal atrial fibrillation with RVR Current Visit: Yes Status: Acute Assessment and plan: remains in sinus rhythm (2) Acute and chronic respiratory failure with hypoxia Current Visit: Yes Status: Acute Assessment and plan: clinically much better (3) Elevated troponin Current Visit: Yes Status: Acute Assessment and plan: medical treatment see cardiology evaluation (4) Microcytic anemia Current Visit: Yes Status: Chronic Assessment and plan: hgb stable (5) Bacteremia Current Visit: Yes Status: Acute Assessment and plan: clinically doing well will repeat blood culture and switch to po meds if culture negative (6) Functional dysphonia Current Visit: Yes Status: Acute Assessment and plan: continues to improve (7) HTN (hypertension) Current Visit: Yes Status: Chronic Assessment and plan: uncontrolled added norvasc and increase as need Qualifiers: Hypertension type: essential hypertension Qualified Code(s): I10 - Essential (primary) hypertension (8) Bradycardia Current Visit: Yes Status: Acute Assessment and plan: likely due to nausea decraesed lopressor to 12.5 mg bid - Subjective Interval history: Patient with no significant medical history except for high blood pressure because she has not been seen a doctor for several years patient was brought in due to shortness from primary physician office where she was seen for symptoms 2 weeks of shortness of breath, productive cough and wheezing also has some chills and fever and some chest pain and palpitation she was found in the defibrillation with rapid ventricular response of which she is now back to normal sinus rhythm CTA of the chest showed no pulmonary embolism blood cultures positive for gm negative today does not feels well had some nausea and bradycardia lopressor not given HR now 63 - Constitutional Vitals: Temp Pulse Resp BP Pulse Ox 98.0 F 64 14 176/76 93 07/27/16 12:24 07/27/16 12:24 07/27/16 12:24 07/27/16 12:24 07/27/16 12:24 General appearance: Present: cooperative, A&O X 3, no acute distress, answers questions appropriately - Head Head exam: Present: atraumatic, normocephalic - Eye Eye exam: Present: PERRL, conjuntiva pink, sclera anicteric Pupils: Present: PERRL - Neck Neck exam general surgery: Present: supple, trachea midline. Absent: lymphadenopathy - Respiratory Respiratory exam: Present: CTAB. Absent: accessory muscle use, rales, rhonchi, wheezes - Cardiovascular Cardiovascular exam: Present: RRR, +S1, +S2. Absent: diastolic murmur, gallop, rubs, systolic murmur - GI/Abdominal GI/Abdominal exam: Present: normal bowel sounds, soft, no peritoneal signs. Absent: distended, tenderness - Extremities Exam Extremities exam: Present: warm, radial pulses palpable and symetrical. Absent : calf tenderness, cyanotic, pedal edema Internal Medicine: Result - Labs CBC & Chem 7: 07/26/16 04:39 07/26/16 04:39 - ABG Interpretation ABG results: PT/INR, D-dimer PT 14.3 Seconds (9.4-12.1) H 07/22/16 23:47 D-Dimer 1557 ng/mLFEU (0-500) H 07/22/16 23:47 Consult Discharge Plan - Plan Referrals: Bon Santillan MD [Partnered Physician] - 08/08/16 9:15 am (Please take to your appointment the new patient packet filled out that is being sent through the mail. Please take a picture ID, ins. cards all medication in the bottles. Show up 15 minutes early to your appointment. If you have to cancel please do so with in 24 hours of your appointment time at [phone]. Thanks) Leonila Casper CNP [Partnered Physician] - (Office will call patient at home with her appointment)
[2016-07-27] MEDS ORDERED: levoFLOXacin 500 MG TABLET PO ONE (14:26)
[2016-07-28 03:49] LABS: Hematocrit 32.2 % (35.3-44.9); Hemoglobin 9.5 g/dL (11.5-15.4); Mean Corpuscular HGB Conc 29.5 g/dL (31.6-35.5); Mean Corpuscular Hemoglobin 21.3 pg (28.0-33.3); Mean Platelet Volume 9.2 fL (9.4-12.4); Platelet Count 343 K/mcL (140-400); Red Blood Count 4.47 M/mcL (3.82-4.97); Red Cell Distribution Width 21.9 % (11.5-14.5)
[2016-07-28 04:04] LABS: BUN/Creatinine Ratio 7 (6-26); Calcium 8.8 mg/dL (8.6-10.8); Carbon Dioxide 26 mEq/L (19-29); Chloride 105 mEq/L (98-109); Glucose 93 mg/dL (70-99); Osmolality,Calculated 283 (280-300); Potassium 3.3 mEq/L (3.5-4.5); Sodium 138 mEq/L (136-145); eGFR For African Americans > 60 (> 60); eGFR For Non-African Americans > 60 (> 60)
[2016-07-28 04:05] LABS: Blood Urea Nitrogen 4 mg/dL (7-20)
[2016-07-28] MEDS: *HR* Heparin 5,000 UNIT/ML VIAL SQ SCH (05:30)
[2016-07-28] MEDS: Pantoprazole 40 MG VIAL IVP SCH (08:00)
[2016-07-28] MEDS ORDERED: amLODIPine 5 MG TABLET PO SCH (09:00)
[2016-07-28 11:39] VITALS: BP 146/65
[2016-07-28] MEDS ORDERED: levoFLOXacin 500 MG TABLET PO SCH (12:30)
--- NOTE | 2016-07-28 14:45 | Discharge Summary ---
Date of Encounter: 07/28/16 Time of Encounter: 13:30 - Discharge Diagnosis (1) Acute and chronic respiratory failure with hypoxia Priority: Primary Status: Acute (2) Bacteremia Priority: Secondary Status: Acute Comments: secondary to pneumonia (3) DVT prophylaxis Priority: Secondary Status: Acute (4) HTN (hypertension) Priority: Secondary Status: Chronic Qualifiers: Hypertension type: essential hypertension Qualified Code(s): I10 - Essential (primary) hypertension (5) Microcytic anemia Priority: Secondary Status: Chronic (6) Paroxysmal atrial fibrillation with RVR Priority: Primary Status: Acute - Discharge Medications Prescriptions: Aspirin [Lo-Dose Aspirin EC] 81 mg PO DAILY #30 tablet. Levofloxacin [Levaquin] 500 mg PO Q24H #2 tablet Home Medications: Acetaminophen [Tylenol] 650 mg PO Q6HR PRN #0 tablet 07/28/16 [Rx] Amlodipine [Norvasc] 5 mg PO DAILY tablet 07/28/16 [Rx] Aspirin [Lo-Dose Aspirin EC] 81 mg PO DAILY #30 tablet. 07/28/16 [Rx] Atorvastatin [Lipitor] 80 mg PO HS tablet 07/28/16 [Rx] Docusate [Colace] 100 mg PO BID PRN #0 capsule 07/28/16 [Rx] Ferrous Sulfate 325 mg PO DAILY@0800 tablet 07/28/16 [Rx] Levofloxacin [Levaquin] 500 mg PO Q24H #2 tablet 07/28/16 [Rx] Lisinopril [Zestril] 20 mg PO DAILY tablet 07/28/16 [Rx] Metoprolol [Lopressor] 12.5 mg PO BID tablet 07/28/16 [Rx] Allergies/Adverse Reactions: Allergies No Known Allergies Allergy (Verified 07/22/16 21:50) Date of admission: 07/24/16 17:40 Primary care physician: PCP NO Consults: 07/25/16 15:34 Consult to ENT [CONS] Routine Consulting Provider: CAITLIN Nogueira Reason for Consult: Hoarseness Call Completed: Yes Discharging clinician: Vanessa Hawthorne Anticipated date of discharge: 07/28/16 - Patient Status Disposition: Transfer SNF Condition: Good Functional capacity at discharge: uses cane/walker Overall status at discharge: patient is back to baseline - Discharge Instructions Follow Up With: Bon Santillan MD [Partnered Physician] - 08/08/16 9:15 am (Please take to your appointment the new patient packet filled out that is being sent through the mail. Please take a picture ID, ins. cards all medication in the bottles. Show up 15 minutes early to your appointment. If you have to cancel please do so with in 24 hours of your appointment time at [phone]. Thanks) Leonila Casper CNP [Partnered Physician] - (Office will call patient at home with her appointment) Additional Instructions: Please follow up with your primary care physician within one week after your discharge from the hospital. Please follow up with your scraper tender within one to two weeks after your discharge from the hospital. Please follow up with ENT within one to two weeks after your discharge from the hospital. Metoprolol, Lipitor, Aspirin, Ferrous Sulfate, Lisinopril have been added to your home medications. Please take these meds as prescribed. Please continue oral antibiotics as prescribed. Please seek medical help immediately if you have trouble breathing or have chest pain. - Diet and Activity Activity: as per physical therapy Diet: low salt diet Hospital course: Ms. García is a 81 year old female with no reported past medical history as patient has not followed up with a physician in a long time was admitted for management of shortness of breath, fever, and cough. Patient was started on treatment for pneumonia and was found to have new onset A. fib with RVR. Cardiology was consulted, and her A. fib was contributed to the underlying infectious etiology. Patient was started on metoprolol with adequate rate control. She was treated with IV antibiotics for pneumonia. She was also noted to have iron deficiency anemia for which she was started on ferrous sulfate. Due to concern of anemia, aspirin was not immediately started. Her occult stool has been negative and she will be started on low dose aspirin upon discharge. Due to patient's lack of physician follow-up, there is no prior H&H to compare in the records. No acute bleeding has been reported, other than iron deficiency, there is no other source contributing to patient's anemia. ENT was also consulted for new onset of hoarseness of voice. No inpatient therapy was recommended and outpatient follow-up was suggested. At this time patient is hemodynamically stable and in no distress. She was evaluated by physical therapy and SNF was recommended. Patient will be discharged to ECF with follow-up with cardiology, PCP, and ENT. She demonstrates understanding of her diagnosis and agree with the discharge care and plan. - Time Spent with Patient Total time spent providing and/or coordinating discharge services: Greater than 30 minutes - Constitutional Vitals: Temp Pulse Resp BP Pulse Ox 97.6 F 58 18 146/65 93 07/28/16 11:38 07/28/16 11:38 07/28/16 11:38 07/28/16 11:38 07/28/16 11:38 General appearance: Present: cooperative, A&O X 3, no acute distress, answers questions appropriately - Head Head exam: Present: atraumatic, normocephalic - Eye Eye exam: Present: normal appearance, conjuntiva pink, sclera anicteric - Respiratory Respiratory exam: Present: CTAB. Absent: accessory muscle use, rales, rhonchi, wheezes - Cardiovascular Cardiovascular exam: Present: RRR, +S1, +S2. Absent: diastolic murmur, gallop, rubs, systolic murmur - GI/Abdominal GI/Abdominal exam: Present: normal bowel sounds, soft, no peritoneal signs. Absent: distended, tenderness - Extremities Exam Extremities exam: Present: warm, radial pulses palpable and symetrical. Absent : calf tenderness, pedal edema - Neurological Exam Neurological exam: Present: alert, oriented X3 - Psychiatric Psychiatric exam: Present: normal affect, normal mood
--- NOTE | 2016-07-28 15:07 | Physician Discharge Referral ---
ExtendedCare Referral Info Transfer To: [facility] Provider in Charge after Transfer: PCP - Diagnosis (1) Acute and chronic respiratory failure with hypoxia Priority: Primary Status: Resolved (2) Bacteremia Priority: Primary Status: Acute (3) DVT prophylaxis Priority: Secondary Status: Acute (4) HTN (hypertension) Priority: Secondary Status: Chronic (5) Microcytic anemia Priority: Secondary Status: Chronic (6) Paroxysmal atrial fibrillation with RVR Priority: Secondary Status: Acute - Transfer Medications Prescriptions: Aspirin [Lo-Dose Aspirin EC] 81 mg PO DAILY #30 tablet. Levofloxacin [Levaquin] 500 mg PO Q24H #2 tablet Home Medications: Acetaminophen [Tylenol] 650 mg PO Q6HR PRN #0 tablet 07/28/16 [Rx] Amlodipine [Norvasc] 5 mg PO DAILY tablet 07/28/16 [Rx] Aspirin [Lo-Dose Aspirin EC] 81 mg PO DAILY #30 tablet. 07/28/16 [Rx] Atorvastatin [Lipitor] 80 mg PO HS tablet 07/28/16 [Rx] Docusate [Colace] 100 mg PO BID PRN #0 capsule 07/28/16 [Rx] Ferrous Sulfate 325 mg PO DAILY@0800 tablet 07/28/16 [Rx] Levofloxacin [Levaquin] 500 mg PO Q24H #2 tablet 07/28/16 [Rx] Lisinopril [Zestril] 20 mg PO DAILY tablet 07/28/16 [Rx] Metoprolol [Lopressor] 12.5 mg PO BID tablet 07/28/16 [Rx] Allergies/Adverse Reactions: Allergies No Known Allergies Allergy (Verified 07/22/16 21:50) - Respiratory Orders Smoking Cessation: Smoking cessation has been advised. For more information, call the [place] Tobacco Quit Line at 9-284-WZXC-NOW. - Rehabiliation Orders Other: Please follow up with your primary care physician within one week after your discharge from the hospital. Please follow up with your cranberry grower within one to two weeks after your discharge from the hospital. Please follow up with ENT within one to two weeks after your discharge from the hospital. Metoprolol, Lipitor, Aspirin, Ferrous Sulfate, Lisinopril have been added to your home medications. Please take these meds as prescribed. Please continue oral antibiotics as prescribed. Please seek medical help immediately if you have trouble breathing or have chest pain. CERTIFICATION: I certify that the transfer of the above named patient to an Extended Care Facility is necessary for the continuing treatment of the diagnosis listed. The above information is true and accurate reflection of patient's current condition. Confidential - Redisclosure prohibited without a patient's written consent.
== END 2016-07-28 16:25 | DRG 189 ==
LOC: 2NNU 21:49 → EMEROO 21:49 → 2NNU 07-23 04:03 → 2ANU 07-25 15:44
PROVIDERS: ADMIT Internal Medicine; ATTEND Internal Medicine

== ENCOUNTER 2017-03-13 11:14 | Inpatient (IN) ==
[2017-03-13 12:14] LABS: Basophils % 0.1 %; Eosinophils % 0.4 %; Hematocrit 36.9 % (35.3-44.9); Immature Granulocytes % 0.8 % (0-4); Lymphocytes # 1.6 K/mcL (0.6-4.6); Lymphocytes % 22.1 %; Mean Corpuscular HGB Conc 32.5 g/dL (31.6-35.5); Mean Corpuscular Hemoglobin 29.5 pg (28.0-33.3); Mean Corpuscular Volume 90.7 fL (83.0-100.0); Mean Platelet Volume 9.5 fL (9.4-12.4); Monocytes # 0.7 K/mcL (0.0-1.3); Monocytes % 8.9 %; Neutrophils # 4.9 K/mcL (1.6-8.9); Platelet Count 332 K/mcL (140-400); Red Blood Count 4.07 M/mcL (3.82-4.97); Red Cell Distribution Width 14.7 % (11.5-14.5); Segmented Neutrophils % 67.7 %
[2017-03-13 12:29] LABS: BUN/Creatinine Ratio 23 (6-26); Blood Urea Nitrogen 12 mg/dL (7-20); Calcium 8.5 mg/dL (8.6-10.8); Carbon Dioxide 28 mEq/L (19-29); Chloride 104 mEq/L (98-109); Glucose 105 mg/dL (70-99); Osmolality,Calculated 288 (280-300); Sodium 139 mEq/L (136-145); eGFR For African Americans > 60 (> 60); eGFR For Non-African Americans > 60 (> 60)
[2017-03-13 12:30] LABS: Potassium 3.6 mEq/L (3.5-4.5)
--- NOTE | 2017-03-13 13:19 | Emergency Department Note ---
Disposition Clinical Impression: Shortness of breath, Altered level of consciousness Disposition: Admitted As Inpatient Condition: Fair Referrals: Nicholas Narayanan MD [Primary Care Provider] - Forms: ED Satisfaction Letter Time of Disposition: 17:04 SOB HPI - General Chief Complaint: ED Shortness of Breath/Dyspnea Stated Complaint: STEVE Time Seen by Provider: 03/13/17 11:21 Source: patient Limitations: no limitations Nursing Notes Reviewed: Yes Vital Signs Reviewed: Yes - History of Present Illness The patient presents per EMS and I did see the patient upon arrival and the paramedics state that she did have a oxygen saturation of 98% on 2 L nasal cannula at this point the daughter is here who helps with the history stating that the patient has had confusion for the last several days and also increased difficulty with breathing for the last several days the patient does have exertional dyspnea when she is transferred to a wheelchair. She is confined to bed. The patient have some rhinorrhea but no cough, no chest pain or shortness of breath. The patient does not have any swelling of the extremities. Does have generalized pain which is unchanged from baseline. She does not have fever , blurred vision, sneezing, blood in the urine or stool. She does bruise easily and does have bruising of the right arm. No skin rash. No numbness of the extremities. Social history: Stopped smoking 6 years ago but she smoked her entire life before that. - Related Data Home Medications Medication Instructions Recorded Confirmed Clotrimazole [Mycelex Lebron] 10 mg MM TID 03/13/17 03/13/17 Metoprolol [Lopressor] 25 mg PO BID 03/13/17 03/13/17 Previous Rx's Medication Instructions Recorded Acetaminophen [Tylenol] 650 mg PO Q6HR PRN #0 tablet 07/28/16 Aspirin [Lo-Dose Aspirin EC] 81 mg PO DAILY #30 tablet. 07/28/16 Atorvastatin [Lipitor] 80 mg PO HS tablet 07/28/16 Docusate [Colace] 100 mg PO BID PRN #0 capsule 07/28/16 Ferrous Sulfate 325 mg PO DAILY@0800 tablet 07/28/16 Lisinopril [Zestril] 20 mg PO DAILY tablet 07/28/16 amLODIPine [Norvasc] 5 mg PO DAILY tablet 07/28/16 Allergies Allergy/AdvReac Type Severity Reaction Status Date / Time No Known Allergies Allergy Verified 03/13/17 12:31 Constitutional: Reports: as per HPI Past Medical History - Past Medical History Medical history: Reports: non-contributory Surgical history: Reports: appendectomy, hip replacement (Right), hysterectomy Psychiatric history: Reports: no psych history - Social History Smoking Status: Former smoker Smokeless Tobacco Status: No Alcohol use: Reports: none Drug use: Reports: none Physical Exam CONSTITUTIONAL: Alert , she does know the month and the year, does seem weak and debilitated and does answer questions slowly but appropriately, thin, does have conversational dyspnea HEAD: Normocephalic; atraumatic. EYES: PERRL, no scleral icterus. NOSE: The nose is normal in appearance without rhinorrhea RESP: Normal chest excursion with respiration; breath sounds clear on the right with decreased breath sounds on the left CARD: Regular rhythm, without murmurs, rub or gallop ABD: Non-distended; non-tender, soft,without rigidity, rebound or guarding SKIN: Normal for age and race; warm and dry; no apparent lesions NEUROLOGICAL: Patient is alert and oriented times three. Cranial nerves III- XII are intact. Sensory and motor functions are intact. Strength is 5/5 for flexion and extension in all 4 extremities. Patellar DTRS are equal and intact. Finger to nose testing is equal and normal bilaterally. extremities: Pulses 2+ and equal all 4 extremities, mild right lower extremity edema - General Limitations: no limitations General appearance: alert, in no apparent distress Course Vital Signs Temperature 97.3 F L 03/13/17 11:20 Pulse Rate 73 03/13/17 11:20 Respiratory Rate 18 03/13/17 11:20 Blood Pressure 117/57 03/13/17 11:20 O2 Sat by Pulse Oximetry 96 03/13/17 11:20 Temperature 97.3 F L 03/13/17 11:20 Pulse Rate 76 03/13/17 16:45 Respiratory Rate 18 03/13/17 16:45 Blood Pressure 117/57 03/13/17 16:45 O2 Sat by Pulse Oximetry 97 03/13/17 16:45 Oxygen Delivery Oxygen Delivery Room Air Shortness of Breath/Dyspnea - MDM Narrative Medical decision making narrative: The patient did have labs ordered and I did review the results results and the d -dimer was elevated and a CTA was ordered and the patient is currently being wheeled down the [place] to have performed. I did review the EKG showing a normal sinus rhythm with a rate of 69 without acute ischemic changes. The patient will be admitted to the hospital due to new onset of altered level of consciousness as well as shortness of breath which is significant to the point that she does have conversational dyspnea 1551 I did review the patient's lab results as well as radiology testing. She does have some new pleural effusions. This ends at the pneumonia has resolved. The patient does admit to having some amount of depression. It is difficult for the family to care for the patient at home at this point and so ECF placement is one consideration however this is delicate at this time. The patient does havedyspnea and this will be further evaluated in the hospital. She is typically on 2 L oxygen and has had a increased oxygen requirement to 3 L nasal cannula.[id number] - Medical Records Medical records reviewed: Yes I reviewed the patient's medical records. - Lab Data Lab results reviewed: Yes I reviewed the patient's lab results. Result diagrams: 03/13/17 11:32 03/13/17 11:32 Lab Results 03/13/17 03/13/17 03/13/17 Range/Units 11:32 11:32 11:32 WBC 7.3 (4.3-11.1) K/mcL RBC 4.07 (3.82-4.97) M/mcL Hgb 12.0 (11.5-15.4) g/dL Hct 36.9 (35.3-44.9) % MCV 90.7 (83.0-100.0) fL MCH 29.5 (28.0-33.3) pg MCHC 32.5 (31.6-35.5) g/dL RDW 14.7 H (11.5-14.5) % Plt Count 332 (140-400) K/mcL MPV 9.5 (9.4-12.4) fL Immature Gran % 0.8 (0-4) % Seg Neutrophils % 67.7 % Lymphocytes % 22.1 % Monocytes % 8.9 % Eosinophils % 0.4 % Basophils % 0.1 % Neutrophils # 4.9 (1.6-8.9) K/mcL Lymphocytes # 1.6 (0.6-4.6) K/mcL Monocytes # 0.7 (0.0-1.3) K/mcL Eosinophils # 0.0 (0.0-0.6) K/mcL Basophils # 0.0 (0.0-0.2) K/mcL D-Dimer (0-500) ng/mLFEU VBG pH (7.32-7.42) pH Units VBG pCO2 (41-51) mmHg VBG pO2 (25-50) mmHg VBG HCO3 (21-27) mEq/L Sodium (136-145) mEq/L Potassium (3.5-4.5) mEq/L Chloride (98-109) mEq/L Carbon Dioxide (19-29) mEq/L BUN (7-20) mg/dL Creatinine (0.57-1.11) mg/dL Est GFR ( Amer) (> 60) Est GFR (Non-Af Amer) (> 60) BUN/Creatinine Ratio (6-26) Glucose (70-99) mg/dL Calculated Osmolality (280-300) Calcium (8.6-10.8) mg/dL Troponin I 0.01 (0-0.03) ng/mL B-Natriuretic Peptide 37 (0-100) pg/mL TSH (0.350-4.840) mcIU/mL Free T4 (0.70-1.48) ng/dl 03/13/17 03/13/17 03/13/17 Range/Units 11:32 13:15 13:33 WBC (4.3-11.1) K/mcL RBC (3.82-4.97) M/mcL Hgb (11.5-15.4) g/dL Hct (35.3-44.9) % MCV (83.0-100.0) fL MCH (28.0-33.3) pg MCHC (31.6-35.5) g/dL RDW (11.5-14.5) % Plt Count (140-400) K/mcL MPV (9.4-12.4) fL Immature Gran % (0-4) % Seg Neutrophils % % Lymphocytes % % Monocytes % % Eosinophils % % Basophils % % Neutrophils # (1.6-8.9) K/mcL Lymphocytes # (0.6-4.6) K/mcL Monocytes # (0.0-1.3) K/mcL Eosinophils # (0.0-0.6) K/mcL Basophils # (0.0-0.2) K/mcL D-Dimer 531 H (0-500) ng/mLFEU VBG pH 7.43 H (7.32-7.42) pH Units VBG pCO2 45 (41-51) mmHg VBG pO2 69 H (25-50) mmHg VBG HCO3 30 H (21-27) mEq/L Sodium 139 (136-145) mEq/L Potassium 3.6 (3.5-4.5) mEq/L Chloride 104 (98-109) mEq/L Carbon Dioxide 28 (19-29) mEq/L BUN 12 (7-20) mg/dL Creatinine 0.52 L (0.57-1.11) mg/dL Est GFR ( Amer) > 60 (> 60) Est GFR (Non-Af Amer) > 60 (> 60) BUN/Creatinine Ratio 23 (6-26) Glucose 105 H (70-99) mg/dL Calculated Osmolality 288 (280-300) Calcium 8.5 L (8.6-10.8) mg/dL Troponin I (0-0.03) ng/mL B-Natriuretic Peptide (0-100) pg/mL TSH 3.687 (0.350-4.840) mcIU/mL Free T4 1.01 (0.70-1.48) ng/dl - Radiology Data Radiology results reviewed: Yes I reviewed the patient's radiology results.
[2017-03-13 13:21] LABS: VBG HCO3 30 mEq/L (21-27); VBG PCO2 45 mmHg (41-51); VBG PH 7.43 pH Units (7.32-7.42); VBG PO2 69 mmHg (25-50)
[2017-03-13 13:23] LABS: Thyroid Stimulating Hormone 3.687 mcIU/mL (0.350-4.840)
[2017-03-14] MEDS ORDERED: Acetaminophen 325 MG TABLET PO PRN (03:53)
[2017-03-14] MEDS ORDERED: Naloxone 0.4 MG/ML INJ IVP PRN (03:54)
[2017-03-14] MEDS ORDERED: Ipratropium/Albuterol Neb 3 ML IH PRN (03:55)
--- NOTE | 2017-03-14 04:09 | Internal Med History&Physical ---
Date of Encounter: 03/14/17 Time of Encounter: 21:00 Assessment and Plan (1) Bronchitis Current visit: No Status: Acute suspect respiratory symptoms associated with acute bronchitis Duonebs, IV azithromycin Attempting to spare steroids for now watch oxygen trial ambulation in the a.m with pulse ox check atypical serologies (2) Paroxysmal atrial fibrillation with RVR Current visit: No Status: Acute continue rate control agents (3) Microcytic anemia Current visit: No Status: Chronic uses Fe at home Internal Medicine - H&P: HPI Chief complaint: SOB History of present illness: Ms. García is a 81 year old female with hx of bronchitis/COPD, P.AFib who presents with acute onset SOB. She tells me that she has limited cognition and that she don't remember things too well. It appears that she 'could not breathe' today. She uses around 2 L [place] oxygen. On review, she tells me that she is sore all over from chronic arthritis. She lives with dtr and son in law. She reports being bed bound. She does not smoke currently but had smoked for approx 50 years (most of time leaving cigarettes to burn in the lul tray) EKG personally reviewed with rate 69, NSR CT/CT head/brain wo con IMPRESSION: No acute intracranial abnormality. New bilateral right greater than left mastoid air cell opacification, correlate for the possibility of mastoiditis. CT/CT abd pelvis wo no iv no oral IMPRESSION: 1. Multifocal airspace opacities in the right middle and bilateral lower lobes. Pattern may represent multifocal pneumonia or ARDS. Follow-up imaging recommended to ensure resolution. 2. Distended colon with air-fluid levels. Pattern suspected to represent underlying colitis. No focal inflammation or evidence of obstruction. CT/CT chest wo con IMPRESSION: 1. Multifocal airspace opacities in the right middle and bilateral lower lobes. Pattern may represent multifocal pneumonia or ARDS. Follow-up imaging recommended to ensure resolution. 2. Distended colon with air-fluid levels. Pattern suspected to represent underlying colitis. No focal inflammation or evidence of obstruction. CT/CT angio chest IMPRESSION: 1. No evidence of pulmonary embolus. 2. New small layering bilateral pleural effusions with bilateral dependent consolidation that may reflect atelectasis or pneumonia if the patient has fever or leukocytosis. CT/CT angio chest IMPRESSION: 1. No evidence of pulmonary embolus. 2. New small layering bilateral pleural effusions with bilateral dependent consolidation that may reflect atelectasis or pneumonia if the patient has fever or leukocytosis. CT/CT head/brain wo con IMPRESSION: No acute intracranial abnormality. XR/XR chest 1V portable IMPRESSION: Ground-glass airspace opacification in the left lower lung zone appears stable and may represent chronic atelectasis or interstitial change. Underlying pneumonitis cannot be excluded Past Med Surg Social Fam HX - Past Medical History Medical history: non-contributory Psychiatric history: no psych history - Past Surgical History Surgical History: appendectomy, hip replacement, hysterectomy - Social History Smoking Status: Former smoker Smokeless Tobacco Status: No Alcohol use: none Drug use: none - Family History Brother Living Status: Hx Family Cardiac Disorders: Yes ([place]) Hx Family Cancer: Yes (melanoma) Hx Family Neurologic Disorders: Yes (Alzheimer disease) Sister Living Status: Internal Medicine - H&P: Meds Acetaminophen [Tylenol] 650 mg PO Q6HR PRN #0 tablet 07/28/16 [Rx] Aspirin [Lo-Dose Aspirin EC] 81 mg PO DAILY #30 tablet. 07/28/16 [Rx] Atorvastatin [Lipitor] 80 mg PO HS tablet 07/28/16 [Rx] Docusate [Colace] 100 mg PO BID PRN #0 capsule 07/28/16 [Rx] Ferrous Sulfate 325 mg PO DAILY@0800 tablet 07/28/16 [Rx] Lisinopril [Zestril] 20 mg PO DAILY tablet 07/28/16 [Rx] amLODIPine [Norvasc] 5 mg PO DAILY tablet 07/28/16 [Rx] Clotrimazole [Mycelex Lebron] 10 mg MM TID 03/13/17 [History] Metoprolol [Lopressor] 25 mg PO BID 03/13/17 [History] 3 Allergy/AdvReac Type Severity Reaction Status Date / Time No Known Allergies Allergy Verified 03/13/17 12:31 All Systems PM: A 10-system review of systems was performed and is negative for pertinent findings except as documented above in the HPI. Review of systems: ROS 14 point review of systems reviewed as best as possible given presentation. Pertinent positive or negative as per HPI or otherwise reviewed as negative - Constitutional Vitals: Temp Pulse Resp BP Pulse Ox 97.6 F 76 14 111/71 96 03/14/17 03:16 03/14/17 03:16 03/14/17 03:16 03/14/17 03:16 03/14/17 03:16 Exam: General - AAO x 3 but with poor cognition Psych - Appropriate affect/speech. No agitation Eyes - AYE. Eye lids intact. No scleral icterus Heart - Sinus. RRR. S1 and S2 present. No added HS/murmurs appreciated. No elevated JVD appreciated. Lung - Diminished air entry b/l, No crackles/wheezes appreciated GI - Soft, non-tender. No hepatosplenomegaly/ascites. BS+ - No CVA/suprapubic tenderness or palpable bladder distension Skin - Intact. No rash/petechiae/ecchymosis. Warm extremities MSK - Joints with normal ROM. No joint swellings Internal Med - H&P Results - Labs CBC & Chem 7: 03/13/17 11:32 03/13/17 11:32
[2017-03-14] MEDS: Ipratropium/Albuterol Neb 3 ML IH SCH ×4 (04:21→23:32)
[2017-03-14] MEDS: Azithromycin 500 MG in D5% in Water 250 ML IVPB SCH (05:18)
[2017-03-14] MEDS ORDERED: Furosemide 20 MG/2 ML VIAL IVP ONE (07:00)
[2017-03-14] MEDS: amLODIPine 5 MG TABLET PO SCH (07:59)
[2017-03-14] MEDS: Lisinopril 20 MG TABLET PO SCH (07:59)
[2017-03-14] MEDS: Aspirin Enteric Coated 81 MG Tablet PO SCH (08:00)
[2017-03-14 11:10] LABS: Adenovirus Not Detected (Not Detect); Bordetella Pertussis Not Detected (Not Detect); Chlamydophila pneumoniae Not Detected (Not Detect); Coronavirus 229E Not Detected (Not Detect); Coronavirus HKU1 Not Detected (Not Detect); Coronavirus NL63 Not Detected (Not Detect); Coronavirus OC43 Not Detected (Not Detect); Human Metapneumovirus Not Detected (Not Detect); Human Rhinovirus/Enterovirus Not Detected (Not Detect); Influenza A Subtype 2009 H1 Not Detected (Not Detect); Influenza A Untypeable Not Detected (Not Detect); Influenza B Not Detected (Not Detect); Mycoplasma pneumoniae Not Detected (Not Detect); Parainfluenza Virus 1 Not Detected (Not Detect); Parainfluenza Virus 2 Not Detected (Not Detect); Parainfluenza Virus 3 Not Detected (Not Detect); Parainfluenza Virus 4 Not Detected (Not Detect); Respiratory Syncytial Virus Not Detected (Not Detect)
--- NOTE | 2017-03-14 11:13 | Internal Med Progress Note ---
Date of Encounter: 03/14/17 Time of Encounter: 11:09 - Assessment and plan (1) Bronchitis Current Visit: No Status: Acute Assessment and plan: suspected; presented with shortness of breath, rhinorrhea and cough. CXR with possible underlying pneumonia. Chest CTA bilateral consolidation concerning for pneumonia. History PCR negative. Currently does not appear to be pneumonia as she is afebrile and no elevated WBC. Continue azithromycin for suspected acute bacterial bronchitis. Monitor clinical response. (2) Paroxysmal atrial fibrillation with RVR Current Visit: No Status: Acute Assessment and plan: per hx. Rate controlled. Cont home BB. Not on anticoagulation likely due to presumed fall risk. (3) Microcytic anemia Current Visit: No Status: Chronic Assessment and plan: per hx. Hgb 12. Stable. Continue home iron supplement (4) HTN (hypertension) Current Visit: No Status: Chronic Assessment and plan: per hx. BP controlled. Continue home BP medication. Monitor BP and titrate PRN Qualifiers: Hypertension type: essential hypertension Qualified Code(s): I10 - Essential (primary) hypertension (5) Dementia Current Visit: Yes Status: Acute Assessment and plan: per hx. alert and oriented 4, forgetful at times. Mentation at baseline. Supportive care Qualifiers: Dementia type: unspecified type Dementia behavioral disturbance: without behavioral disturbance Qualified Code(s): F03.90 - Unspecified dementia without behavioral disturbance (6) DVT prophylaxis Current Visit: No Status: Acute Assessment and plan: lovenox - Subjective Interval history: Seen and examined at bedside. Patient is new to me, information obtained from chart review and patient report. She has underlying dementia and is forgetful and does not know details by able to answer most questions. Says she still having some shortness of breath but feels overall better. No chest pain. She is nonambulatory, wheelchair bound and requesting PT/OT consult - Constitutional Vitals: Temp Pulse Resp BP Pulse Ox 97.7 F 78 16 109/60 95 03/14/17 07:27 03/14/17 07:27 03/14/17 07:27 03/14/17 07:27 03/14/17 07:27 General appearance: Present: A&O X 3 Exam: forgetful - Head Head exam: Present: atraumatic, normocephalic - Eye Eye exam: Present: PERRL, conjuntiva pink, sclera anicteric Pupils: Present: PERRL - Neck Neck exam general surgery: Present: supple, trachea midline. Absent: lymphadenopathy - Respiratory Respiratory exam: Present: decreased breath sounds, CTAB. Absent: accessory muscle use, rales, rhonchi, wheezes - Cardiovascular Cardiovascular exam: Present: RRR, +S1, +S2. Absent: diastolic murmur, gallop, rubs, systolic murmur - GI/Abdominal GI/Abdominal exam: Present: normal bowel sounds, soft, no peritoneal signs. Absent: distended, tenderness - Extremities Exam Extremities exam: Present: pedal edema, warm, radial pulses palpable and symmetrical. Absent: calf tenderness, cyanotic - Neurological Exam Neurological exam: Present: CN II-XII intact, oriented X3, no focal deficits. Absent: pronater drift, facial droop, speech deficit - Skin Skin exam: Present: dry, intact Internal Medicine: Result - Labs CBC & Chem 7: 03/13/17 11:32 03/13/17 11:32 - ABG Interpretation ABG results: PT/INR, D-dimer D-Dimer 531 ng/mLFEU (0-500) H 03/13/17 13:33 Consult Discharge Plan - Plan Referrals: Nicholas Narayanan MD [Primary Care Provider] -
[2017-03-14 17:07] LABS: Bilirubin,Urine Negative (Negative); Blood,Urine Negative (Negative); Clarity,Urine Clear (Clear); Color,Urine Yellow (Yellow); Glucose,Urine (UA) Normal (Normal); Ketones,Urine Negative (Negative); Leukocyte Esterase,Urine Negative (Negative); Nitrite,Urine Negative (Negative); PH,Urine 7.5 pH Units (5.0-8.0); Protein,Urine Negative (Neg-Trace); Specific Gravity,Urine 1.009 (1.010-1.025); Urobilinogen,Urine Normal (Normal)
[2017-03-15] MEDS: Azithromycin 500 MG in D5% in Water 250 ML IVPB SCH (03:59)
[2017-03-15] MEDS: Ipratropium/Albuterol Neb 3 ML IH SCH ×4 (04:35→22:21)
[2017-03-15] MEDS: *HR* Enoxaparin 40 MG/0.4 ML SYRINGE SQ SCH (05:17)
[2017-03-15] MEDS: Aspirin Enteric Coated 81 MG Tablet PO SCH (09:05)
[2017-03-15] MEDS: amLODIPine 5 MG TABLET PO SCH (09:05)
[2017-03-15] MEDS: Lisinopril 20 MG TABLET PO SCH (09:06)
--- NOTE | 2017-03-15 13:59 | Internal Med Progress Note ---
Date of Encounter: 03/15/17 Time of Encounter: 13:54 - Assessment and plan (1) Bronchitis Current Visit: No Status: Acute Assessment and plan: suspected; presented with shortness of breath, rhinorrhea and cough. CXR with possible underlying pneumonia. Chest CTA bilateral consolidation concerning for pneumonia. History PCR negative. Currently does not appear to be pneumonia as she is afebrile and no elevated WBC. Continue azithromycin for suspected acute bacterial bronchitis. Monitor clinical response. (2) Age-related physical debility Current Visit: Yes Status: Acute Assessment and plan: Lives with daughter and is wheelchair-bound. Daughter updated 03/15 and states she can no longer care for her mother at home and would like SNF placement. PT/ OT consult (3) Paroxysmal atrial fibrillation with RVR Current Visit: No Status: Acute Assessment and plan: per hx. Rate controlled. Cont home BB. Not on anticoagulation likely due to presumed fall risk. (4) Microcytic anemia Current Visit: No Status: Chronic Assessment and plan: per hx. Hgb 12. Stable. Continue home iron supplement (5) HTN (hypertension) Current Visit: No Status: Chronic Assessment and plan: per hx. BP controlled. Continue home BP medication. Monitor BP and titrate PRN Qualifiers: Hypertension type: essential hypertension Qualified Code(s): I10 - Essential (primary) hypertension (6) Dementia Current Visit: Yes Status: Acute Assessment and plan: per hx. Mentation at baseline. Supportive care Qualifiers: Dementia type: unspecified type Dementia behavioral disturbance: without behavioral disturbance Qualified Code(s): F03.90 - Unspecified dementia without behavioral disturbance (7) DVT prophylaxis Current Visit: No Status: Acute Assessment and plan: lovenox - Time Spent With Patient less than 15 minutes - Subjective Interval history: Seen and examined at bedside. Says she slept well. Says she is tired and SOB at times. Otherwise has no complaints. - Constitutional Vitals: Temp Pulse Resp BP Pulse Ox 98.2 F 68 16 107/69 94 03/15/17 10:49 03/15/17 10:49 03/15/17 10:49 03/15/17 10:49 03/15/17 10:49 General appearance: Present: A&O X 2, no acute distress - Head Head exam: Present: atraumatic, normocephalic - Eye Eye exam: Present: PERRL, conjuntiva pink, sclera anicteric Pupils: Present: PERRL - Neck Neck exam general surgery: Present: supple, trachea midline. Absent: lymphadenopathy - Respiratory Respiratory exam: Present: CTAB. Absent: accessory muscle use, rales, rhonchi, wheezes - Cardiovascular Cardiovascular exam: Present: RRR, +S1, +S2. Absent: diastolic murmur, gallop, rubs, systolic murmur - GI/Abdominal GI/Abdominal exam: Present: normal bowel sounds, soft, no peritoneal signs. Absent: distended, tenderness - Extremities Exam Extremities exam: Present: warm, radial pulses palpable and symmetrical. Absent : calf tenderness, cyanotic, pedal edema - Neurological Exam Neurological exam: Present: CN II-XII intact, oriented X3, no focal deficits. Absent: pronater drift, facial droop, speech deficit - Skin Skin exam: Present: dry, intact Internal Medicine: Result - Labs CBC & Chem 7: 03/13/17 11:32 03/13/17 11:32 Labs: Urine 03/14/17 Range/Units 16:55 Urine Color Yellow (Yellow) Urine Clarity Clear (Clear) Urine pH 7.5 (5.0-8.0) pH Units Ur Specific [place] 1.009 L (1.010-1.025) Urine Protein Negative (Neg-Trace) mg/dL Urine Glucose (UA) Normal (Normal) mg/dL - ABG Interpretation ABG results: PT/INR, D-dimer D-Dimer 531 ng/mLFEU (0-500) H 03/13/17 13:33 Consult Discharge Plan - Plan Referrals: Nicholas Narayanan MD [Primary Care Provider] -
[2017-03-16] MEDS: Ipratropium/Albuterol Neb 3 ML IH SCH ×4 (04:09→23:11)
[2017-03-16] MEDS: *HR* Enoxaparin 40 MG/0.4 ML SYRINGE SQ SCH (05:21)
[2017-03-16] MEDS: Azithromycin 500 MG in D5% in Water 250 ML IVPB SCH (05:22)
[2017-03-16 05:58] LABS: Hematocrit 36.4 % (35.3-44.9); Hemoglobin 11.8 g/dL (11.5-15.4); Mean Corpuscular HGB Conc 32.4 g/dL (31.6-35.5); Mean Corpuscular Hemoglobin 28.9 pg (28.0-33.3); Mean Corpuscular Volume 89.2 fL (83.0-100.0); Platelet Count 297 K/mcL (140-400); Red Blood Count 4.08 M/mcL (3.82-4.97); Red Cell Distribution Width 14.9 % (11.5-14.5)
[2017-03-16 06:14] LABS: BUN/Creatinine Ratio 11 (6-26); Blood Urea Nitrogen 6 mg/dL (7-20); Calcium 8.7 mg/dL (8.6-10.8); Carbon Dioxide 25 mEq/L (19-29); Chloride 106 mEq/L (98-109); Glucose 96 mg/dL (70-99); Osmolality,Calculated 287 (280-300); Potassium 3.8 mEq/L (3.5-4.5); Sodium 140 mEq/L (136-145); eGFR For African Americans > 60 (> 60); eGFR For Non-African Americans > 60 (> 60)
[2017-03-16] MEDS: amLODIPine 5 MG TABLET PO SCH (09:19)
[2017-03-16] MEDS: Lisinopril 20 MG TABLET PO SCH (09:19)
[2017-03-16] MEDS: Aspirin Enteric Coated 81 MG Tablet PO SCH (09:19)
--- NOTE | 2017-03-16 09:53 | Electrocardiograph Report ---
[facility] [employer] Test Date: 2017-03-13 Pat Name: Debbi García Department: 103 Room: 3B32 Gender: F [employer] Supervisor: MORTEZA : 1935 Requested By: Marco Antonio Lion Order Number: [id number] Reading MD: Chavo Houser MD Measurements Intervals [place] Rate: 69 P: -25 ME: 160 QRS: 4 QRSD: 70 T: 12 QT: 377 QTc: 395 Interpretive Statements SINUS RHYTHM WITH SINUS ARRHYTHMIA WARNING: DATA QUALITY MAY AFFECT INTERPRETATION Electronically Signed On 03-16-2017 9:35:02 EST by Chavo Houser MD
--- NOTE | 2017-03-16 14:00 | Internal Med Progress Note ---
Date of Encounter: 03/16/17 Time of Encounter: 10:00 - Assessment and plan (1) Bronchitis Current Visit: No Status: Acute Assessment and plan: suspected; presented with shortness of breath, rhinorrhea and cough. CXR with possible underlying pneumonia. Chest CTA bilateral consolidation concerning for pneumonia. History PCR negative. Currently does not appear to be pneumonia as she is afebrile and no elevated WBC. Continue azithromycin for suspected acute bacterial bronchitis. Monitor clinical response. (2) Age-related physical debility Current Visit: Yes Status: Acute Assessment and plan: Lives with daughter and is wheelchair-bound. Daughter updated 03/15 and states she can no longer care for her mother at home and would like SNF placement. PT/ OT consult (3) Paroxysmal atrial fibrillation with RVR Current Visit: No Status: Acute Assessment and plan: per hx. Rate controlled. Cont home BB. Not on anticoagulation likely due to presumed fall risk. (4) Microcytic anemia Current Visit: No Status: Chronic Assessment and plan: per hx. Hgb 12. Stable. Continue home iron supplement (5) HTN (hypertension) Current Visit: No Status: Chronic Assessment and plan: per hx. BP controlled. Continue home BP medication. Monitor BP and titrate PRN Qualifiers: Hypertension type: essential hypertension Qualified Code(s): I10 - Essential (primary) hypertension (6) Dementia Current Visit: Yes Status: Acute Assessment and plan: suspected. Family reports increasing confusion and forgetfulness. UA unremarkable. No obvious infectious or metabolic etiologies. Head CT nonacute. Suspect underlying dementia with possibly superimposed delirium with recurrent hospitalization. Brain MRI pending. Supportive care Qualifiers: Dementia type: unspecified type Dementia behavioral disturbance: without behavioral disturbance Qualified Code(s): F03.90 - Unspecified dementia without behavioral disturbance (7) DVT prophylaxis Current Visit: No Status: Acute Assessment and plan: lovenox - Subjective Interval history: Seen and examined at bedside. She has multiple complaints today including shortness of breath, feels like her hands are swollen and is not sleeping well. Discussed case with son and all at bedside in detail. [place] reports family suspects underlying dementia. This patient is more forgetful and confused. [place] reports that patient is total care at home and he does are unable to care for her at this time. They do believe she needs SNF for skilled therapy. Patient is reluctant to take breathing treatments as she had a adverse reaction of hoarseness in the past. No chest pain - Constitutional Vitals: Temp Pulse Resp BP Pulse Ox 98.9 F 70 19 98/66 97 03/16/17 11:12 03/16/17 11:12 03/16/17 11:12 03/16/17 11:12 03/16/17 11:12 General appearance: Present: A&O X 2, no acute distress - Head Head exam: Present: atraumatic, normocephalic - Eye Eye exam: Present: PERRL, conjuntiva pink, sclera anicteric Pupils: Present: PERRL - Neck Neck exam general surgery: Present: supple, trachea midline. Absent: lymphadenopathy - Respiratory Respiratory exam: Present: CTAB. Absent: accessory muscle use, rales, rhonchi, wheezes - Cardiovascular Cardiovascular exam: Present: RRR, +S1, +S2. Absent: diastolic murmur, gallop, rubs, systolic murmur - GI/Abdominal GI/Abdominal exam: Present: normal bowel sounds, soft, no peritoneal signs. Absent: distended, tenderness - Extremities Exam Extremities exam: Present: warm, radial pulses palpable and symmetrical. Absent : calf tenderness, cyanotic, pedal edema - Neurological Exam Neurological exam: Present: CN II-XII intact, oriented X3, no focal deficits. Absent: pronater drift, facial droop, speech deficit - Skin Skin exam: Present: dry, intact Internal Medicine: Result - Labs CBC & Chem 7: 03/16/17 04:53 03/16/17 04:53 Labs: Short CBC 03/16/17 Range/Units 04:53 WBC 5.4 (4.3-11.1) K/mcL Hgb 11.8 (11.5-15.4) g/dL Hct 36.4 (35.3-44.9) % Plt Count 297 (140-400) K/mcL BMP 03/16/17 04:53 Sodium 140 Potassium 3.8 Chloride 106 Carbon Dioxide 25 BUN 6 L Creatinine 0.55 L Glucose 96 Calcium 8.7 - ABG Interpretation ABG results: PT/INR, D-dimer D-Dimer 531 ng/mLFEU (0-500) H 03/13/17 13:33 Consult Discharge Plan - Plan Referrals: Nicholas Narayanan MD [Primary Care Provider] -
[2017-03-17] MEDS: Azithromycin 500 MG in D5% in Water 250 ML IVPB SCH (03:54)
[2017-03-17] MEDS: Ipratropium/Albuterol Neb 3 ML IH SCH ×2 (04:05→11:17)
[2017-03-17 04:38] LABS: Hematocrit 34.5 % (35.3-44.9); Hemoglobin 11.3 g/dL (11.5-15.4); Mean Corpuscular HGB Conc 32.8 g/dL (31.6-35.5); Mean Corpuscular Hemoglobin 29.4 pg (28.0-33.3); Mean Corpuscular Volume 89.8 fL (83.0-100.0); Platelet Count 246 K/mcL (140-400); Red Blood Count 3.84 M/mcL (3.82-4.97); Red Cell Distribution Width 15.2 % (11.5-14.5)
[2017-03-17 04:53] LABS: Calcium 8.7 mg/dL (8.6-10.8); Carbon Dioxide 25 mEq/L (19-29); Chloride 106 mEq/L (98-109); Glucose 95 mg/dL (70-99); Osmolality,Calculated 281 (280-300); Potassium 3.6 mEq/L (3.5-4.5); Sodium 137 mEq/L (136-145)
[2017-03-17 04:59] LABS: Blood Urea Nitrogen 5 mg/dL (7-20)
[2017-03-17 05:13] LABS: BUN/Creatinine Ratio 9 (6-26); eGFR For African Americans > 60 (> 60); eGFR For Non-African Americans > 60 (> 60)
[2017-03-17] MEDS: *HR* Enoxaparin 40 MG/0.4 ML SYRINGE SQ SCH (05:56)
[2017-03-17] MEDS: amLODIPine 5 MG TABLET PO SCH (08:28)
[2017-03-17] MEDS: Lisinopril 20 MG TABLET PO SCH (08:28)
[2017-03-17] MEDS: Aspirin Enteric Coated 81 MG Tablet PO SCH (08:28)
[2017-03-17 10:49] VITALS: BP 93/48
--- NOTE | 2017-03-17 11:51 | Discharge Summary ---
Date of Encounter: 03/17/17 Time of Encounter: 11:47 - Discharge Diagnosis (1) CAP (community acquired pneumonia) Priority: Primary Status: Acute Comments: presented with shortness of breath, rhinorrhea and cough. CXR with possible underlying pneumonia. Chest CTA bilateral consolidation concerning for pneumonia, negative for pulmonary embolism. Afebrile, no elevated to WBC. Did not appear acute or toxic. Respiratory PCR, urinary antigens negative. Treated with IV azithromycin inpatient. Change to Levaquin at discharge. Qualifiers: Laterality: left Lung location: lower lobe of lung Qualified Code(s): J18.1 - Lobar pneumonia, unspecified organism (2) Age-related physical debility Priority: Primary Status: Acute Comments: Lives with daughter who reports a gradual decline in overall physical health and mobility. Daughter feels she can no longer take care of patient at home. Evaluated by PT/OT who recommended SNF. (3) Paroxysmal atrial fibrillation with RVR Priority: Secondary Status: Resolved Comments: History paroxysmal A. fib with RVR during 06/2016 hospitalization; thought to be secondary to infectious etiology at that time. Evaluated by cardiology who recommended ASA only as A. fib was resolved. EKG with NSR. Cont ASA (4) Microcytic anemia Priority: Primary Status: Chronic Comments: per hx. Hgb 11.8; stable. Continue home iron supplement (5) HTN (hypertension) Priority: Primary Status: Chronic Comments: per hx. BP variable but acceptable. Continue home BP medication. BP came be monitored at ECF. Qualifiers: Hypertension type: essential hypertension Qualified Code(s): I10 - Essential (primary) hypertension (6) Dementia Priority: Primary Status: Acute Comments: suspected. Family reported increased confusion and forgetfulness. Head CT nonacute. Brain MRI nonacute. Suspect component of underlying dementia. Qualifiers: Dementia type: unspecified type Dementia behavioral disturbance: without behavioral disturbance Qualified Code(s): F03.90 - Unspecified dementia without behavioral disturbance - Discharge Medications Prescriptions: levoFLOXacin [Levaquin] 750 mg PO DAILY #5 tablet Home Medications: Acetaminophen [Tylenol] 650 mg PO Q6HR PRN #0 tablet 07/28/16 [Rx] Aspirin [Lo-Dose Aspirin EC] 81 mg PO DAILY #30 tablet. 07/28/16 [Rx] Atorvastatin [Lipitor] 80 mg PO HS tablet 07/28/16 [Rx] Docusate [Colace] 100 mg PO BID PRN #0 capsule 07/28/16 [Rx] Ferrous Sulfate 325 mg PO DAILY@0800 tablet 07/28/16 [Rx] Lisinopril [Zestril] 20 mg PO DAILY tablet 07/28/16 [Rx] amLODIPine [Norvasc] 5 mg PO DAILY tablet 07/28/16 [Rx] Clotrimazole [Mycelex Lebron] 10 mg MM TID 03/13/17 [History] Metoprolol [Lopressor] 25 mg PO BID 03/13/17 [History] levoFLOXacin [Levaquin] 750 mg PO DAILY #5 tablet 03/17/17 [Rx] Allergies/Adverse Reactions: 3 Allergy/AdvReac Type Severity Reaction Status Date / Time No Known Allergies Allergy Verified 03/13/17 12:31 Procedures/tests Complete & Pending: Procedures Performed prior 72 hours Category Date Time Status MR head/brain wo con [MR] Routine MRI 03/16/17 11:18 Completed Date of admission: 03/14/17 16:20 Primary care physician: Nicholas Narayanan MD Consults: 03/15/17 14:02 Consult to Physical Therapy [CONS] Routine Comment: Evaluate, develop and implement POC Reason for Consult: SNF eval OT [Consult to Occupational Therapy] [CONS] Routine Comment: Evaluate, develop and implement POC Reason for Consult: SNF eval Discharging clinician: Linda Callaway Anticipated date of discharge: 03/17/17 - Patient Status Disposition: Transfer SNF Condition: Good Functional capacity at discharge: uses cane/walker Overall status at discharge: patient is progressing back to baseline - Discharge Instructions Follow Up With: Nicholas Narayanan MD [Primary Care Provider] - - Diet and Activity Activity: as per physical therapy, wear oxygen at all times (2) Interval History: Seen and examined at bedside. Patient says she feels better this morning, she feels like the antibiotic is working. Reports productive cough. She denies chest pain or shortness of breath. She is aware plan to discharge to [place]. Hospital course: See assessment and plan for hospital course - Time Spent with Patient Total time spent providing and/or coordinating discharge services: Greater than 30 minutes (46 minutes) - Constitutional Vitals: Temp Pulse Resp BP Pulse Ox 98.3 F 67 16 93/48 94 12/19/17 10:46 03/17/17 10:46 03/17/17 10:46 03/17/17 10:46 03/17/17 10:46 General appearance: Present: A&O X 2, no acute distress - Head Head exam: Present: atraumatic, normocephalic - Eye Eye exam: Present: PERRL, conjuntiva pink, sclera anicteric Pupils: Present: PERRL - Neck Neck exam general surgery: Present: supple, trachea midline. Absent: lymphadenopathy - Respiratory Respiratory exam: Present: CTAB. Absent: accessory muscle use, rales, rhonchi, wheezes - Cardiovascular Cardiovascular exam: Present: RRR, +S1, +S2. Absent: diastolic murmur, gallop, rubs, systolic murmur - GI/Abdominal GI/Abdominal exam: Present: normal bowel sounds, soft, no peritoneal signs. Absent: distended, tenderness - Extremities Exam Extremities exam: Present: warm, radial pulses palpable and symmetrical. Absent : calf tenderness, cyanotic, pedal edema - Neurological Exam Neurological exam: Present: CN II-XII intact, oriented X3, no focal deficits. Absent: pronater drift, facial droop, speech deficit - Skin Skin exam: Present: dry, intact
--- NOTE | 2017-03-17 12:37 | Physician Discharge Referral ---
ExtendedCare Referral Info Transfer To: [facility] Provider in Charge: Linda Callaway CNP Provider in Charge after Transfer: Other (SNF provider) Institutional Level of Care: Skilled - Diagnosis (1) CAP (community acquired pneumonia) Status: Acute (2) Age-related physical debility Status: Acute (3) Paroxysmal atrial fibrillation with RVR Status: Resolved (4) Microcytic anemia Status: Chronic (5) HTN (hypertension) Status: Chronic (6) Dementia Status: Acute - Transfer Medications Prescriptions: levoFLOXacin [Levaquin] 750 mg PO DAILY #5 tablet Home Medications: Acetaminophen [Tylenol] 650 mg PO Q6HR PRN #0 tablet 07/28/16 [Rx] Aspirin [Lo-Dose Aspirin EC] 81 mg PO DAILY #30 tablet.dr 07/28/16 [Rx] Atorvastatin [Lipitor] 80 mg PO HS tablet 07/28/16 [Rx] Docusate [Colace] 100 mg PO BID PRN #0 capsule 07/28/16 [Rx] Ferrous Sulfate 325 mg PO DAILY@0800 tablet 07/28/16 [Rx] Lisinopril [Zestril] 20 mg PO DAILY tablet 07/28/16 [Rx] amLODIPine [Norvasc] 5 mg PO DAILY tablet 07/28/16 [Rx] Clotrimazole [Mycelex Lebron] 10 mg MM TID 03/13/17 [History] Metoprolol [Lopressor] 25 mg PO BID 03/13/17 [History] levoFLOXacin [Levaquin] 750 mg PO DAILY #5 tablet 03/17/17 [Rx] Allergies/Adverse Reactions: 3 Allergy/AdvReac Type Severity Reaction Status Date / Time No Known Allergies Allergy Verified 03/13/17 12:31 - Respiratory Orders Oxygen / L per min (2) Smoking Cessation: Smoking cessation has been advised. For more information, call the [place] Tobacco Quit Line at 0-136-JJDP-NOW. - Advance Directives Code Status: Full Code - Mobility Orders Ambulate - Rehabiliation Orders Rehab Potential: Fair Rehab Orders: Evaluation for Physical Therapy, Evaluation for Occupational Therapy - Diet Orders Regular CERTIFICATION: I certify that the transfer of the above named patient to an Extended Care Facility is necessary for the continuing treatment of the diagnosis listed. The above information is true and accurate reflection of patient's current condition. Confidential - Redisclosure prohibited without a patient's written consent.
[2017-03-18 07:51] LABS: Mycoplasma pneumoniae IgG 0.32 U/L (<=0.09)
== END 2017-03-17 13:35 | DRG 190 ==
LOC: 3BNU 11:14 → EMEROO 11:14 → 3BNU 18:17
PROVIDERS: ADMIT Internal Medicine; ATTEND Registered Nurse